=== PATIENT | female | born 2000 | race Caucasian/White ===

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

== ENCOUNTER → 2022-03-31 | Outpatient (CLI) | payer MEDICAID, SELFPAY ==
[2022-03-31 10:46] LABS: HIV - WCH Non-Reactive (Nonreactive); Syphilis Antibodies Non-reactive
[2022-03-31 15:59] LABS: Chlamydia Trachomatis by PCR Negative (Negative); Neisserai gonorrhoeae by PCR Negative (Negative); Probe Check PASS; Sample Adequacy Control PASS; Specimen Processing Control PASS
[2022-04-01 16:13] LABS: HSV 1 IgG < 0.91 index (0.00-0.90); HSV 2 IgG < 0.91 index (0.00-0.90)
== END | disposition home or self-care (01) ==
LOC: PAVLAB 09:26
PROVIDERS: PCP Pediatrics; Visit Provider Nurse Practitioner Women's Health
DX: Z11.3 Encounter for screening for infections with a predominantly sexual mode of transmission (principal); Z20.2 Contact with and (suspected) exposure to infections with a predominantly sexual mode of transmission
CPT/HCPCS: 36415; 86695; 86696; 86703; 86780; 87491; 87591

== ENCOUNTER 2022-07-27 15:45 | Emergency (ER) | payer MEDICAID, SELFPAY ==
[2022-07-27 15:46] VITALS: BP 111/62; PULSE 85; RESP 16; TEMP 36.4; O2SAT 100; BMI 22.8
--- NOTE | 2022-07-27 16:10 | ED.VIS.FEGU ---
HPI <MAYURI Nicholson - Last Filed: 07/27/22 17:56> HPI - Female History of Present Illness Chief Complaint: Vag Bleeding Narrative Narrative: 22-year-old female presents with heavy vaginal bleeding. She states since she stopped the Depo shots in October 2021 she was lightly spotting every day. She was on 1 month of oral control which stopped the bleeding but since she discontinued that she has been spotting almost daily since then. Yesterday she started bleeding more heavily with diffuse abdominal cramping. She is passing blood clots. She cannot quantify it well because she is using some kind of menstrual disc she empties every 12 hours instead of tampons/pads. She vomited once a day over the last few days. She reports that 3 days ago she had a home test that was faintly positive but then took 2 more the next day that were negative. [facility] <MAYURI Nicholson - Last Filed: 07/27/22 17:56> [facility] Medical History Depression Dysmenorrhea Scoliosis Home Medications docosahexaenoic acid 200 mg capsule ( DHA) mg PO 03/31/22 [History Last Taken Unknown] estradiol 1 mg tablet (Estrace) 1 mg PO QDAY #30 tabs 03/31/22 [Rx Last Taken Unknown] rizatriptan 10 mg tablet See Rx Instructions PO .COMPLEX 03/31/22 [History Last Taken Unknown] Allergy/AdvReac Type Severity Reaction Status Date / Time adhesive Allergy Intermediate Swelling Verified 07/27/22 15:46 Latex, Natural Rubber AdvReac Rash Verified 07/27/22 15:46 Family History Unknown Alzheimer's dementia Blindness genetic blindess, 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 Surgical History History of tonsillectomy and adenoidectomy Social History (Updated 03/31/22 @ 09:02 by Robyn Lew) household members: significant other and other number of children: 0 current occupational status: employed current occupation: [employer] - [employer] history of recent travel: No sexually active: Yes Smoking Status: Current every day smoker tobacco type: cigarettes and e-cigarettes Electronic Cigarette Use: with nicotine alcohol intake: current alcohol intake frequency: holidays/special occasions only substance use type: does not use what type of physical activity do you participate in: running and weight training frequency: 1-2 times per week seatbelt use: always do you feel safe at home: Yes additional social history: ROS <MAYURI Nicholson - Last Filed: 07/27/22 17:56> ROS ED ROS Narrative Constitutional: Negative for fever, chills, malaise. Eyes: Negative for visual change. ENT: Negative for sore throat, ear pain, rhinorrhea. CVS: Negative for palpitations, chest pain, syncope. Respiratory: Negative for shortness of breath, cough, orthopnea. GI: Positive for abdominal pain, nausea, vomiting. Negative for diarrhea, constipation, melena, hematochezia. : Negative for dysuria, hematuria or frequency. Neuro: Negative for headache, motor/sensory dysfunction. Skin: Negative for rash, abscess, or wound. Musc: Negative for joint pain, swelling, trauma. Heme: Negative for easy bruising, bleeding, lymphadenopathy. EXAM <MAYURI Nicholson - Last Filed: 07/27/22 17:56> Physical Exam Narrative Exam Narrative: CONST: Patient sitting in no acute distress. EYES: Normal inspection. NECK: Normal inspection. RESP: No respiratory distress, CTAB. CVS: Regular rate and rhythm, no murmur, no gallop. ABD: Soft with mild periumbilical tenderness, no significant pelvic tenderness, no guarding or rebound, nondistended. Pelvic: Normal external genitalia, small amount of blood in the vaginal vault with normal-appearing cervix. No tears or lacerations. SKIN: Color normal, no rash, warm, dry, intact. EXTREMITIES: Normal appearance, no pedal edema. NEURO: Oriented x4. PSYCH: Normal affect. Const Vital Signs: 07/27/22 15:46 Temperature 97.6 F L Temperature Source Temporal Pulse Rate 85 Respiratory Rate 16 Blood Pressure 111/62 Blood Pressure Mean 78 Pulse Ox 100 Oxygen Delivery Method Room Air <Dr. Jam Yan MD - Last Filed: 07/27/22 17:30> Physical Exam Const Vital Signs: 07/27/22 15:46 Temperature 97.6 F L Temperature Source Temporal Pulse Rate 85 Respiratory Rate 16 Blood Pressure 111/62 Blood Pressure Mean 78 Pulse Ox 100 Oxygen Delivery Method Room Air [facility] <MAYURI Nicholson - Last Filed: 07/27/22 17:56> [facility] Narrative Medical decision making narrative: Patient presents with abdominal cramping and 2 days of heavy vaginal bleeding. She does have history of irregular periods and spots almost daily. She is not on control. She appears well and nontoxic with normal vital signs. She has mild diffuse abdominal tenderness but no peritoneal signs. test is negative and urinalysis has 5-10 RBCs but no infection. Pelvic exam showed minimal blood in the vaginal vault no signs of active bleeding or tears and normal cervix. She was treated with Motrin. With no orthostatic symptoms and benign exam I do not feel she needs emergent blood work. She can follow-up with her established FOREIGN AGENT and was discharged in stable condition. I have personally performed a face to face assessment of the patient and have reviewed the CAROLYNN Note. I performed a substantive portion of the visit including all aspects of the following. My emrcado findings include: History is [22-year-old female G0, P0 complaining of vaginal bleeding and cramping. No history of . No discharge. No dysuria. No fever. Similar symptoms for months. No specific diagnosis by her FOREIGN AGENT office.] Exam is [well-appearing 22-year-old. Vital signs stable afebrile. Does not look septic toxic. No distress. Lungs are clear. Heart regular rhythm. Abdomen soft nondistended normal bowel sounds no peritoneal signs. No significant suprapubic tenderness. Right upper and right lower quadrants are unremarkable. Moving all 4 extremities. Nontender no edema. Neurologic exam normal.] Medical Decision Making [Young female with pelvic cramping and bleeding. UA negative. Rare bacteria. No known test negative. Physician speech language pathologist assistant will do a pelvic exam. She will be discharged to follow-up with her FOREIGN AGENT.] Other additions or changes: [None] Lab Data Attestation: I reviewed the patient's lab results. Labs: Laboratory Results - last 24 hr 07/27/22 16:30 Urine Color Yellow Urine Clarity Clear Urine pH 6.0 Ur Specific [place] 1.010 Urine Protein Negative Urine Glucose (UA) Normal Urine Ketones 15 H Urine Occult Blood 250 H Urine Nitrite Negative Urine Bilirubin Negative Urine Urobilinogen Normal Ur Leukocyte Esterase Negative Urine RBC 5-10 SEEN Urine WBC 0-5 SEEN Ur Squamous Epith Cells 0-5 SEEN Urine Bacteria RARE Urine Mucus 0 SEEN Urine Test Negative <Dr. Jam Yan MD - Last Filed: 07/27/22 17:30> [facility] Narrative Medical decision making narrative: Patient presents with abdominal cramping and 2 days of heavy vaginal bleeding. She does have history of irregular periods and spots almost daily. She is not on control. She appears well and nontoxic with normal vital signs. She has mild diffuse abdominal tenderness but no peritoneal signs. test is negative and urinalysis has 5-10 RBCs but no infection. She was treated with Motrin. With no orthostatic symptoms and benign exam I do not feel she needs emergent blood work. She can follow-up with her established FOREIGN AGENT and was discharged in stable condition. I have personally performed a face to face assessment of the patient and have reviewed the CAROLYNN Note. I performed a substantive portion of the visit including all aspects of the following. My mercado findings include: History is [22-year-old female G0, P0 complaining of vaginal bleeding and cramping. No history of . No discharge. No dysuria. No fever. Similar symptoms for months. No specific diagnosis by her FOREIGN AGENT office.] Exam is [well-appearing 22-year-old. Vital signs stable afebrile. Does not look septic toxic. No distress. Lungs are clear. Heart regular rhythm. Abdomen soft nondistended normal bowel sounds no peritoneal signs. No significant suprapubic tenderness. Right upper and right lower quadrants are unremarkable. Moving all 4 extremities. Nontender no edema. Neurologic exam normal.] Medical Decision Making [Young female with pelvic cramping and bleeding. UA negative. Rare bacteria. No known test negative. Physician speech language pathologist assistant will do a pelvic exam. She will be discharged to follow-up with her FOREIGN AGENT.] Other additions or changes: [None] Lab Data Labs: Laboratory Results - last 24 hr 07/27/22 16:30 Urine Color Yellow Urine Clarity Clear Urine pH 6.0 Ur Specific [place] 1.010 Urine Protein Negative Urine Glucose (UA) Normal Urine Ketones 15 H Urine Occult Blood 250 H Urine Nitrite Negative Urine Bilirubin Negative Urine Urobilinogen Normal Ur Leukocyte Esterase Negative Urine RBC 5-10 SEEN Urine WBC 0-5 SEEN Ur Squamous Epith Cells 0-5 SEEN Urine Bacteria RARE Urine Mucus 0 SEEN Urine Test Negative Discharge Plan Triage Chief Complaint: Vag Bleeding ED Midlevel Provider: Keli Stokes ED Provider: Jam Yan Dx/Rx/DC Orders Clinical Impression: Vaginal bleeding, Pelvic pain Instructions: ED Dysfunctional Uterine Bleeding Prescriptions: No Action DHA 200 mg capsule PO rizatriptan 10 mg tablet See Rx Instructions PO .COMPLEX Rx Instructions: take 1 tab at onset of headache; if no relief may repeat 1 tab after at least 2 hrs; max = 3 tabs/24 hr PO estradiol [Estrace] 1 mg tablet 1 mg PO QDAY Qty: 30 0RF Primary Care Provider: Lou Lugo Referrals: Lou Lugo MD [Primary Care Provider] - Activity Restrictions/Additional Instructions: Take Tylenol or Motrin as needed every 6 hours and follow-up with your FOREIGN AGENT. Disposition Disposition: Home, Self Care
[2022-07-27 16:40] LABS: Internal QC Validated? YES +Cl - CLEAR BKGD; Mucous, Urine 0 SEEN /hpf (<or=2+)
[2022-07-27 16:43] LABS: Color, Urine Yellow (Yellow); Glucose, Dipstick Normal (Normal); Ketone-Dipstick 15 mg/dl (Negative); Leukocyte Esterase-Dipstick Negative /ul (Negative); Nitrite-Dipstick Negative (Negative); Occult Blood-Urine 250 /ul (Negative); Protein-Dipstick Negative (Negative); Urine Bilirubin Dipstick Negative (Negative); Urine Clarity Clear (Clear); Urine Urobilinogen Normal (Normal)
[2022-07-27 16:45] LABS: Pregnancy, Urine Negative Negative
[2022-07-27 16:50] LABS: Bacteria RARE /hpf (None Seen); Red Blood Cells-Urine 5-10 SEEN /hpf (0-5); Squamous Epithelial Cells - UA 0-5 SEEN /hpf (5-10); White Blood Cells 0-5 SEEN /hpf (0-5)
[2022-07-27] MEDS: Ibuprofen 600 MG Tablet PO (17:32)
== END 2022-07-27 18:11 | disposition home or self-care (01) ==
PROVIDERS: Physician Assistant; Emergency Provider Emergency Medicine; PCP Pediatrics; Visit Provider Emergency Medicine
DX: N93.9 Abnormal uterine and vaginal bleeding, unspecified (principal); R10.2 Pelvic and perineal pain; F17.210 Nicotine dependence, cigarettes, uncomplicated
CPT/HCPCS: 81001; 81025; 99282

== ENCOUNTER 2023-01-10 22:40 | Emergency (ER) | payer OTHER, SELFPAY ==
[2023-01-10 22:41] VITALS: BP 132/69; PULSE 82; RESP 16; TEMP 36.1; O2SAT 100; BMI 22.6
--- NOTE | 2023-01-10 22:51 | EDS_ITS ---
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 She was dazed but did not lose consciousness. She states subsequently she has been having headache, nausea, and vomited a couple times. She has had some blurry vision but it is off and on. No vision loss or diplopia. No focal neurologic symptoms. No neck, back, extremity pain or other symptoms. [facility] Medical History Depression Dysmenorrhea Scoliosis Home Medications docosahexaenoic acid 200 mg capsule ( DHA) 200 mg PO DAILY 03/31/22 [History Last Taken Unknown] Allergy/AdvReac Type Severity Reaction Status Date / Time adhesive Allergy Intermediate Swelling Verified 01/10/23 22:43 Latex, Natural Rubber AdvReac Rash Verified 01/10/23 22:43 Family History Unknown Alzheimer's dementia Blindness genetic blindess, 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 Surgical History History of tonsillectomy and adenoidectomy Social History household members: significant other and other number of children: 0 current occupational status: employed current occupation: [employer] history of recent travel: No sexually active: Yes Smoking Status: Current every day smoker tobacco type: cigarettes and e- cigarettes Electronic Cigarette Use: with nicotine alcohol intake: current alcohol intake frequency: holidays/special occasions only substance use type: does not use what type of physical activity do you participate in: running and weight training frequency: 1-2 times per week seatbelt use: always do you feel safe at home: Yes additional social history: ROS ROS ED Constitutional Constitutional ED: Reports fatigue Eyes Eyes: Reports blurry vision; Denies diplopia or loss of vision Cardiovascular Cardiovascular: Denies chest pain Gastrointestinal Gastrointestinal: Reports nausea and vomiting; Denies abdominal pain Genitourinary Genitourinary ED: Reports LMP (females 10-50) Details: Comment: (About 6 days ago, rn cardiac rehab than usual. Patient states she was 6 days late, with a negative home test on the day before she started.) Musculoskeletal Musculoskeletal: Denies back pain, extremity pain or neck pain Integumentary Denies abscess, Abrasions or rash Neurologic Neurologic: Reports headache(s) EXAM Physical Exam Const Vital Signs: 01/10/23 22:41 01/10/23 22:46 Temperature 97 F L Temperature Source Temporal Pulse Rate 82 Respiratory Rate 16 Respiratory Effort Normal Non-Labored Respiratory Depth Normal Respiratory Pattern Normal Blood Pressure 132/69 H Blood Pressure Mean 90 Pulse Ox 100 Oxygen Delivery Method Room Air Room Air Positive well nourished and well developed General Appearance ED: well developed and NAD HEENT Reports TM's clear and nasal mucous membranes and turbinates normal HEENT Narrative: Tenderness superior aspect of occiput, top of head, no boggy hematoma, no laceration, exam limited by the amount of patient care. No laurent sign. No periorbital ecchymosis. No CSF otorhinorrhea. No hemotympanum. Face and Sinus: Negative for facial tenderness Tympanic Membrane ED: Yes TM's clear Eyes PERRL and EOMs intact bilaterally Visual Acuity: other Other Details: no entrapment or pain with extraocular movements Neck full ROM and supple General: Negative for tenderness Resp normal respiratory effort Back/Spine normal ROM Cervical Spine: Negative for cervical spine tenderness Thoracic Spine / Upper Back: Negative for thoracic spinal tenderness Lumbar Spine / Lower Back: Negative for lumbar spinal tenderness Extremity normal to inspection and full ROM General Extremety ED: Negative for tenderness Neuro oriented x3, CN's II-XII intact bilaterally, moves all extremities, no focal motor deficits and no sensory deficits noted Adam Coma Scale: document GCS findings Spontaneous Obeys Commands Oriented 15 Sensorium / Orientation: awake and alert Psych mental status grossly normal and thought process normal Psych Narrative: Flat affect Skin no wounds Lesions: no lesions Rashes: no rashes MDM MDM MDM Narrative Medical decision making narrative: CT of the head was obtained, images appear unremarkable my interpretation, the radiologist reviewed it and I agree with his interpretation. Patient was given Tylenol and Zofran in the meantime, she is reassured, likely mild concussion, she needs to follow-up with [employer] [facility] especially if symptoms persist but in the meantime she will be given appropriate temporary work restrictions. Radiography Diagnostic Testing: Clinical Impression(s) from Imaging Studies Brain CT 01/10/23 22:57 IMPRESSION: Negative head/brain CT without intravenous contrast. Electronically Signed: Joseph Vital MD at 23:15 EDT Reading Location ID and State: [facility] / [place] Tel , Service support , Discharge Plan Triage Chief Complaint: Head Injury ED Provider: Brandon Baker Dx/Rx/DC Orders Clinical Impression: Head injury, closed, with concussion Instructions: Concussion Dc Prescriptions: No Action DHA 200 mg capsule 200 mg PO DAILY Stand Alone Forms: Work Status Form Primary Care Provider: Care Physician,No Primary Referrals: [facility] [Group of Physicians] - 2 Days Lou Lugo MD [Non-Staff] - Disposition Disposition: Home, Self Care
[2023-01-10] MEDS: Acetaminophen 500 MG Tablet 1000 MG PO (22:54)
--- NOTE | 2023-01-10 22:57 | CT_ITS ---
EXAM: CT HEAD WITHOUT INTRAVENOUS CONTRAST CLINICAL INDICATION: trauma TECHNIQUE: Multiple axial images were obtained of the head without intravenous contrast. This CT exam was performed using one or more of the following dose reduction techniques: automated exposure control, adjustment of the mA and/or kV according to patient size, and/or use of iterative reconstruction technique. COMPARISON: No relevant prior studies available. FINDINGS: BRAIN AND EXTRA-AXIAL SPACES: Unremarkable. No intra- or extra-axial hemorrhage. No evidence of acute infarct. No intracranial mass or mass effect. There is preservation of the teran/white matter interface. Posterior fossa structures are unremarkable. Ventricles are appropriate for age. No hydrocephalus. Basal cisterns are patent. BONES/JOINTS: Unremarkable. No discrete lytic or blastic abnormalities. SINUSES: Unremarkable as visualized. Clear. MASTOID AIR CELLS: Unremarkable. Clear. ORBITS: Visualized globes, extraocular muscles, optic nerves and retrobulbar fat appear unremarkable. CT/Brain/Head without Contrast IMPRESSION: Negative head/brain CT without intravenous contrast. Electronically Signed: Joseph Vital MD at 23:15 EDT ,
== END 2023-01-10 23:44 | disposition home or self-care (01) ==
LOC: ED 23:14
PROVIDERS: Emergency Provider Emergency Medicine; Visit Provider Emergency Medicine
DX: S06.0X0A Concussion without loss of consciousness, initial encounter (principal); F17.210 Nicotine dependence, cigarettes, uncomplicated; W22.8XXA Striking against or struck by other objects, initial encounter
CPT/HCPCS: 70450; 99283

== ENCOUNTER 2023-08-28 01:18 | Emergency (ER) | payer MEDICAID, SELFPAY ==
[2023-08-28 01:19] VITALS: BP 133/87; PULSE 96; RESP 20; TEMP 36.4; O2SAT 99; BMI 25.9
[2023-08-28 01:39] LABS: Bacteria 0 SEEN /hpf (None Seen); Mucous, Urine 0 SEEN /hpf (<or=2+); Red Blood Cells-Urine 0 SEEN /hpf (0-5); Squamous Epithelial Cells - UA 0 SEEN /hpf (5-10); White Blood Cells 0 SEEN /hpf (0-5)
[2023-08-28 01:42] LABS: Absolute Lymphocyte Count 4.31 X10^3/uL (0.83-4.51); Absolute Neutrophil Count 3.4 X10^3/uL (2.0-7.7); Basophil# 0.02 X10^3/uL; Basophil% 0.2 % (0-1); Eosinophil# 0.23 X10^3/uL; Eosinophils% 2.6 % (0-5); Hematocrit 41.2 % (37-47); Hemoglobin 13.3 g/dL (12.0-15.0); Lymphocyte # 4.31 X10^3/ul (0.83-4.51); Lymphocyte % 48.9 % (19-41); Mean Corp Hgb Conc 32.3 g/dL (32-36); Mean Corpuscular Hgb 28.4 pg (27.0-32.0); Mean Corpuscular Volume 87.8 fL (81-99); Mean Platelet Vol. 9.6 fl (6.2-12.0); Monocyte# 0.86 X10^3/uL; Monocyte% 9.8 % (0-10); NRBC Flagged by Analyzer 0 % (0-5); Neutrophil # 3.37 X10^3/uL (2.7-7.7); Neutrophil % 38.3 % (47-70); Platelet Count 374 K/mm3 (150-450); RBC Distribution Width CV 11.9 % (11.6-14.6); RBC Distribution Width SD 38.3 fl (35.1-43.9); Red Blood Count 4.69 M/mm3 (4.2-5.4); White Blood Count 8.8 K/mm3 (4.4-11.0)
[2023-08-28 01:46] LABS: Color, Urine Yellow (Yellow); Glucose, Dipstick Normal (Normal); Ketone-Dipstick Negative (Negative); Leukocyte Esterase-Dipstick Negative /ul (Negative); Nitrite-Dipstick Negative (Negative); Occult Blood-Urine 150 /ul (Negative); Protein-Dipstick Negative (Negative); Urine Bilirubin Dipstick Negative (Negative); Urine Clarity Clear (Clear); Urine Urobilinogen Normal (Normal)
[2023-08-28 01:53] LABS: Internal QC Validated? YES +Cl - CLEAR BKGD; Pregnancy, Serum, hCG Quali. NEGATIVE Negative
[2023-08-28 02:12] LABS: ALB/GLOB Ratio 1.2 RATIO (0.9-2.4); AST(SGOT) 17 U/L (15-37); Alanine Aminotransfer ALT/SGPT 25 U/L (13-56); Albumin, Serum 4.4 g/dL (3.2-5.0); Alkaline Phosphatase 82 U/L (45-117); Anion Gap 7 (5-15); BUN 8 mg/dL (7-18); BUN/Creat Ratio 9.4 RATIO (10-20); Calcium,Total 9.5 mg/dL (8.5-10.1); Chloride 108 mmol/L (98-107); Creatinine, Serum 0.85 mg/dL (0.55-1.02); EST Glomerular Filtration Rate 90 mL/min (>60); Est Glom Filt Rate - Afr Amer 108 mL/min (>60); Estimated Creatinine Clearance 98.01 ml/min; Globulin 3.7 g/dL (2.2-4.2); Glucose 90 mg/dL (74-106); Potassium 3.6 mmol/L (3.5-5.1); Protein, Total 8.1 g/dL (6.4-8.2); Sodium Level 141 mmol/L (136-145)
--- NOTE | 2023-08-28 02:52 | ED.VIS.GI ---
HPI HPI - GI History of Present Illness Chief Complaint: Abd Pain Narrative Narrative: 23-year-old female presenting with pelvic pain. She states has had this in the past. She has a history of ovarian cyst. Patient is on concern for . She states she had some episodes of nausea and vomiting today. She states that she had this about a year ago which is very similar and was seen at [facility]. She had a CT of the abdomen pelvis and lab work which was all normal. She states that time they gave her Dilaudid in the ER but did not give her anything for home. Her symptoms lasted only a couple of days and then resolved. Denies vaginal complaints. Denies UTI symptoms. No fevers or chills PFSH PFSH Medical History Depression Dysmenorrhea Scoliosis Home Medications dicyclomine 10 mg capsule 20 mg (2 x 10 mg) PO TID #30 caps 08/28/23 [Rx Last Taken Unknown] naproxen 500 mg tablet (Naprosyn) 500 mg PO BID PRN pain #20 tabs 08/28/23 [Rx Last Taken Unknown] ondansetron 4 mg disintegrating tablet 4 mg PO Q8H PRN PRN Nausea #14 tabs 08/28/23 [Rx Last Taken Unknown] Allergy/AdvReac Type Severity Reaction Status Date / Time adhesive Allergy Intermediate Swelling Verified 08/28/23 01:22 Latex, Natural Rubber AdvReac Rash Verified 08/28/23 01:22 Family History Unknown Alzheimer's dementia Blindness genetic blindess, 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 Surgical History History of tonsillectomy and adenoidectomy Social History household members: significant other and other number of children: 0 current occupational status: employed current occupation: [employer] history of recent travel: No sexually active: Yes Smoking Status: Current every day smoker tobacco type: cigarettes and e-cigarettes Electronic Cigarette Use: with nicotine alcohol intake: current alcohol intake frequency: holidays/special occasions only substance use type: does not use what type of physical activity do you participate in: running and weight training frequency: 1-2 times per week seatbelt use: always do you feel safe at home: Yes additional social history: ROS ROS ED Constitutional Constitutional ED: Denies chills, fever(s) or sweats Eyes Eyes: Denies blurry vision or change in vision ENT ENT ED: Denies ear pain or sore throat Cardiovascular Cardiovascular: Denies chest pain, palpitations or racing heartbeat Respiratory/Chest Respiratory/Chest: Denies cough, dyspnea or sputum Gastrointestinal Gastrointestinal: Reports abdominal pain, nausea and vomiting; Denies constipation or diarrhea Genitourinary Genitourinary ED: Denies dysuria, hematuria or urinary frequency Musculoskeletal Musculoskeletal: Denies arthralgias, myalgias or neck pain Integumentary Denies abscess, Abrasions or rash Neurologic Neurologic: Denies headache(s), paresthesias or weakness Psychiatric Psychiatric: Denies anxiety, depression, suicidal ideation or suicidal thoughts Endocrine Endocrinology: Denies polydipsia or polyuria EXAM Physical Exam Const Vital Signs: 08/28/23 01:19 Temperature 97.6 F L Temperature Source Temporal Pulse Rate 96 Respiratory Rate 20 H Blood Pressure 133/87 H Blood Pressure Mean 102 Pulse Ox 99 Oxygen Delivery Method Room Air Positive well nourished General Appearance ED: NAD; Negative for pallor HEENT Reports moist mucous membranes normocephalic and atraumatic Eyes PERRL and EOMs intact bilaterally Neck no lymphadenopathy Resp normal respiratory effort Cardio regular rate and regular rhythm GI GI Narrative: Diffusely tender. No peritoneal signs. Neuro CN's II-XII intact bilaterally Sensorium / Orientation: alert Psych mental status grossly normal Skin General Skin Exam: Negative for jaundice or pallor MDM MDM MDM Narrative Medical decision making narrative: Patient presenting with suprapubic pain/pelvic pain. Differential includes constipation, ovarian cyst, , dehydration, electrolyte normalities. CBC was obtained to assess white blood cell count, hemoglobin, platelets. CMP to assess liver function, renal function, electrolytes. hCG to assess for . Urinalysis to assess for UTI. Workup ultimately within normal limits. Discussed treatment with Toradol and Bentyl currently. Patient states she does have history of ovarian cyst but I do not believe she has any evidence of a torsion on exam. Recommended conservative measures for ovarian cyst if it was present. I did offer a CT scan as we do not have ultrasound here tonight although the patient declines. We will try Bentyl and Toradol and then reevaluate. Reevaluation at 430 AM the patient is doing much better. She wishes to go home. I will give prescription for Zofran, Bentyl, Naprosyn. Return precautions were discussed. Impression: 1. Abdominal pain 2. nausea/vomiting Lab Data Attestation: I reviewed the patient's lab results. Labs: Laboratory Results - last 24 hr 08/28/23 08/28/23 01:29 01:32 WBC 8.8 RBC 4.69 Hgb 13.3 Hct 41.2 MCV 87.8 MCH 28.4 MCHC 32.3 RDW Std Deviation 38.3 RDW Coeff of Tomy 11.9 Plt Count 374 MPV 9.6 Immature Gran % (Auto) 0.200 Neut % (Auto) 38.3 L Lymph % (Auto) 48.9 H [place] % (Auto) 9.8 Eos % (Auto) 2.6 Baso % (Auto) 0.2 Absolute Neuts (auto) 3.4 Absolute Lymphs (auto) 4.31 Nucleated RBC % 0 Sodium 141 Potassium 3.6 Chloride 108 H Carbon Dioxide 26.0 Anion Gap 7 BUN 8 Creatinine 0.85 Estim Creat Clear Calc 98.01 Est GFR (MDRD) Af Amer 108 Est GFR (MDRD) Non-Af 90 BUN/Creatinine Ratio 9.4 L Glucose 90 Calcium 9.5 Total Bilirubin 0.40 AST 17 ALT 25 Alkaline Phosphatase 82 Total Protein 8.1 Albumin 4.4 Globulin 3.7 Albumin/Globulin Ratio 1.2 Serum , Qual NEGATIVE Urine Color Yellow Urine Clarity Clear Urine pH 7.0 Ur Specific [place] 1.010 Urine Protein Negative Urine Glucose (UA) Normal Urine Ketones Negative Urine Occult Blood 150 H Urine Nitrite Negative Urine Bilirubin Negative Urine Urobilinogen Normal Ur Leukocyte Esterase Negative Urine RBC 0 SEEN Urine WBC 0 SEEN Ur Squamous Epith Cells 0 SEEN Urine Bacteria 0 SEEN Urine Mucus 0 SEEN Discharge Plan Triage Chief Complaint: Abd Pain ED Provider: Ty Klein Dx/Rx/DC Orders Instructions: ED Abdominal Pain Unkn Cause Fem Prescriptions: New dicyclomine 10 mg capsule 20 mg PO TID Qty: 30 0RF ondansetron 4 mg tablet,disintegrating 4 mg PO Q8H PRN PRN (Reason: Nausea) Qty: 14 0RF naproxen [Naprosyn] 500 mg tablet 500 mg PO BID PRN (Reason: pain) Qty: 20 0RF Primary Care Provider: Care Physician,No Primary Referrals: Care Physician,No Primary [Primary Care Provider] - Disposition Disposition: Home, Self Care
[2023-08-28] MEDS: Ketorolac 15 MG/ML Vial IV (03:19)
[2023-08-28] MEDS: Ondansetron 4 MG/2 ML Vial IV (03:20)
[2023-08-28] MEDS: Dicyclomine 10 MG Capsule 20 MG PO (03:20)
--- OUTSIDE RECORDS SUMMARY | 2023-08-28 03:40 | XMS RPT_ITS | CCD ---
Author Name Unknown Address [address] [place] [address] Organization [facility] Care Team Providers Care Databases Software Consultant Name Role Phone Unavailable Primary Care Provider Cesar SEARS MD, DR WALDEMAR Syed Primary Care Physician ROWENA, DR DENNIS Miller Admitting Unavaila ble ROWENA, DR DENNIS Miller Attending Unavaila ferny GUAMAN, DR DENNIS Miller Primary Care Unavaila WALDEMAR Woodward MD Consulting Unavailable WALDEMAR SEARS MD Referring Unavailable PROVIDER, UNKNOWN Consulting Unavailable ZULEIKA REGAN DO Admitting Unavailable ZULEIKA REGAN DO Attending Unavailable ZULEIKA REGAN DO Primary Care Unavailable Waldemar Sears Primary Care Provider LATHA GUZMAN, SEUN Attending Unavailable RENU GUZMAN, DR WALDEMAR Syed Primary Care Unavailab WALDEMAR Napier Primary Care Unavailable Allergies Allergy Classification Reported Allergen(s) Allergy Type Date of Onset Reaction(s) Facility (3 sources) traMADol; Translations: [tramadol] Drug Allergy [facility] (1 source) HYDROmorphone Drug Allergy [facility] (1 source) traMADol Drug Allergy [facility] (5 sources) Latex; Translations: [LATEX] Drug Intolerance 07-22-20 Rash, Itching [facility] Work Phone: (5 sources) Adhesive Tape-Silicones; Translations: [ADHESIVE TAPE-SILICONES] Drug Intolerance 07-22-20 Rash, Itching [facility] Work Phone: Medications Current Medications Medication Drug Class(es) Dates Sig (Normalized) Sig (Original) aspirin 81 mg delayed release oral tablet (5 sources) Platelet Aggregation Inhibitor, Nonsteroidal Anti-inflammatory Drug Start: 10-30-2020 Aspir-Low 81 mg oral delayed release tablet Dose : 81 mg = 1 tab(s), Oral, qDay, as needed, # 30 tab(s), 0 Refill(s) Start Date: 10/30/20 Status: Ordered cyclobenzaprine hydrochloride 10 mg oral tablet (2 sources) Muscle Relaxant Start: 02-01-2022 cyclobenzaprine 10 mg oral tablet 0 Refill(s) Start Date: 02/01/22 Status: Ordered ferrous sulfate 325 mg oral tablet (6 sources) Start: 10-30-2020 IRON (ferrous sulfate 325 mg) 65 mg oral tablet Dose : 325 mg = 1 tab(s), Oral, qDay, Take with food., # 60 tab(s), 3 Refill(s) Start Date: 10/30/20 Status: Ordered Completed/Discontinued Medications Medication Drug Class(es) Dates Sig (Normalized) Sig (Original) azithromycin 250 mg oral tablet (1 source) Macrolide Antimicrobial Start: 01-21-2020 End: 07-22-2022 take 2 tablets by mouth once daily, then take 1 tablet by mouth once daily azithromycin (ZITHROMAX Z-EAN) 250 mg tablet Take two tablets by mouth the first day and then one tablet daily for 4 days. 6 tablet 0 01/21/2020 07/22/2022 Discontinued Problems Problem Classification Problem Date Documented Date Episodic/Chronic Abdominal pain (2 sources) Lower abdominal pain; Translations: [Abdominal pain] Onset: 11-26-2021 Episodic Immunizations and screening for infectious disease (1 source) Contact with or exposure to other viral diseases; Translations: [Close exposure to COVID-19 virus] Episodic Nausea and vomiting (1 source) Nausea and vomiting; Translations: [Non-intractable vomiting with nausea, unspecified vomiting type] Episodic Nonspecific chest pain (1 source) Chest pain; Translations: [Other chest pain] Onset: 06-15-2023 Episodic Other connective tissue disease (5 sources) Hamstring injury; Translations: [Other specified enthesopathies of unspecified lower limb, excluding foot] Onset: 08-06-2022 Episodic Other injuries and conditions due to external causes (5 sources) Bone injury; Translations: [Other injury of unspecified body region, initial encounter] Onset: 08-06-2022 Episodic Other non-traumatic joint disorders (1 source) Pain in right knee; Translations: [Pain in joint, lower leg] Episodic Other non-traumatic joint disorders (5 sources) Anterior knee pain; Translations: [Pain in right knee] Onset: 08-06-2022 Episodic Results Test Name Value Interpretation Reference Range Facil ity Vital Signs Date Time Vital Sign Value Performing Clinician Facility 06-15-2023 13:07-0400 Body temperature 98.24 [degF] SEUN AZUL MD [facility] 06-15-2023 13:07-0400 Diastolic Blood Pressure Non-Invasive 78 1 SEUN AZUL MD [facility] 06-15-2023 13:07-0400 Heart rate 103 /min SEUN AZUL MD [facility] 06-15-2023 13:07-0400 Respiratory rate 18 /min SEUN AZUL MD [facility] 06-15-2023 13:07-0400 Systolic Blood Pressure Non-Invasive 115 1 SEUN AZUL MD [facility] 07-22-2022 15:37-0500 Body temperature 98.2 [degF] Ernie Lance LEARNING AND DEVELOPMENT COORDINATOR.CLINICAL DOCUMENTATION SPECIALIST Work Phone: [facility] 07-22-2022 15:37-0500 Body weight 64.41 kg Ernie Lucas LEARNING AND DEVELOPMENT COORDINATOR.CLINICAL DOCUMENTATION SPECIALIST Work Phone: [facility] 07-22-2022 15:37-0500 Diastolic blood pressure 66 mm[Hg] Ernie Lance LEARNING AND DEVELOPMENT COORDINATOR.CLINICAL DOCUMENTATION SPECIALIST Work Phone: [facility] 07-22-2022 15:37-0500 Heart rate 70 /min Ernie Lance LEARNING AND DEVELOPMENT COORDINATOR.CLINICAL DOCUMENTATION SPECIALIST Work Phone: [facility] 07-22-2022 15:37-0500 Respiratory rate 16 /min Ernie Lance LEARNING AND DEVELOPMENT COORDINATOR.CLINICAL DOCUMENTATION SPECIALIST Work Phone: [facility] 07-22-2022 15:37-0500 SaO2% (BldA) [Mass fraction] 99 % Ernie Lucas LEARNING AND DEVELOPMENT COORDINATOR.CLINICAL DOCUMENTATION SPECIALIST Work Phone: [facility] 07-22-2022 15:37-0500 Systolic blood pressure 106 mm[Hg] Ernie Lucas APRN.CLINICAL DOCUMENTATION SPECIALIST Work Phone: [facility] 02-01-2022 17:55-0400 Body temperature 99.32 [degF] SEUN AZUL MD [facility] 02-01-2022 17:55-0400 Diastolic blood pressure 76 mm[Hg] SEUN AZUL MD [facility] 02-01-2022 17:55-0400 Heart rate 101 /min SEUN AZUL MD [facility] 02-01-2022 17:55-0400 Respiratory rate 18 /min SEUN AZUL MD [facility] 02-01-2022 17:55-0400 Systolic blood pressure 115 mm[Hg] SEUN AZUL MD [facility] 12-25-2021 06:39-0400 Body temperature 97.16 [degF] DR SWAPNA SCALES MD [facility] 12-25-2021 06:39-0400 Body weight 65.[address] SWAPNA SCALES MD [facility] 12-25-2021 06:39-0400 diastolic 85 mm[Hg] DR SWAPNA SCALES MD [facility] 12-25-2021 06:39-0400 Heart rate 102 /min DR SWAPNA SCALES MD [facility] 12-25-2021 06:39-0400 Respiratory rate 20 /min DR SWAPNA SCALES MD [facility] 12-25-2021 06:39-0400 systolic 112 mm[Hg] DR SWAPNA SCALES MD [facility] 11-29-2021 01:44-0400 Diastolic blood pressure 70 mm[Hg] ISIDRO MIR MD [facility] 11-29-2021 01:44-0400 Heart rate 82 /min ISIDRO MIR MD [facility] 11-29-2021 01:44-0400 Mean blood pressure 90 mm[Hg] ISIDRO MIR MD [facility] 11-29-2021 01:44-0400 Respiratory rate 18 /min ISIDRO MIR MD [facility] 11-29-2021 01:44-0400 Systolic blood pressure 130 mm[Hg] ISIDRO MIR MD [facility] 11-29-2021 00:21-0400 Body temperature 98.6 [degF] ISIDRO MIR MD [facility] 11-29-2021 00:21-0400 Diastolic blood pressure 78 mm[Hg] ISIDRO MIR MD [facility] 11-29-2021 00:21-0400 Heart rate 90 /min ISIDRO MIR MD [facility] 11-29-2021 00:21-0400 Mean blood pressure 96 mm[Hg] ISIDRO MIR MD [facility] 11-29-2021 00:21-0400 Respiratory rate 18 /min ISIDRO MIR MD [facility] 11-29-2021 00:21-0400 Systolic blood pressure 132 mm[Hg] ISIDRO MIR MD [facility] 11-28-2021 22:47-0400 Body temperature 98.96 [degF] ISIDRO MIR MD [facility] 11-28-2021 22:47-0400 Diastolic blood pressure 92 mm[Hg] ISIDRO MIR MD [facility] 11-28-2021 22:47-0400 Heart rate 95 /min ISIDRO MIR MD [facility] 11-28-2021 22:47-0400 Respiratory rate 18 /min ISIDRO MIR MD [facility] 11-28-2021 22:47-0400 Systolic blood pressure 145 mm[Hg] ISIDRO MIR MD [facility] 11-27-2021 00:40-0400 Diastolic blood pressure 78 mm[Hg] JOLYNN [facility] DO [facility] 11-27-2021 00:40-0400 Heart rate 75 /min [facility] 11-27-2021 00:40-0400 Respiratory rate 16 /min JOLYNN REICHFIELD DO [facility] 11-27-2021 00:40-0400 Systolic blood pressure 114 mm[Hg] JOLYNN REICHFIELD DO [facility] 11-26-2021 21:15-0400 Body height 165.1 cm JOLYNN REICHFIELD DO [facility] 11-26-2021 21:15-0400 Body temperature 98.06 [degF] JOLYNN REICHFIELD DO [facility] 11-26-2021 21:15-0400 Body weight 65.9 kg JOLYNN REICHFIELD DO [facility] 11-26-2021 21:15-0400 Diastolic blood pressure 81 mm[Hg] JOLYNN REICHFIELD DO [facility] 11-26-2021 21:15-0400 Heart rate 100 /min JOLYNN REICHFIELD DO [facility] 11-26-2021 21:15-0400 Respiratory rate 16 /min JOLYNN REICHFIELD DO [facility] 11-26-2021 21:15-0400 Systolic blood pressure 121 mm[Hg] JOLYNN REICHFIELD DO [facility] 12-09-2020 13:33-0400 BMI (Body Mass Index) 20.36 kg/m2 [facility] Work Phone: 12-09-2020 13:33-0400 Body Temperature 98.01 [degF] [facility] Work Phone: 12-09-2020 13:33-0400 Body weight 58.97 kg [facility] Work Phone: 12-09-2020 13:33-0400 BP Diastolic 81 mm[Hg] [facility] Work Phone: 12-09-2020 13:33-0400 BP Systolic 127 mm[Hg] [facility] Work Phone: 12-09-2020 13:33-0400 Pulse (Heart Rate) 80 /min [facility] Work Phone: 12-09-2020 13:33-0400 Pulse Oximetry 98 % [facility] Work Phone: 12-09-2020 13:33-0400 Respiratory Rate 18 /min [facility] Work Phone: 10-29-2020 16:41-0500 BP Diastolic 80 mm[Hg] Isra Woodard [facility] Work Phone: 10-29-2020 16:41-0500 BP Systolic 120 mm[Hg] Isra Woodard [facility] Work Phone: 10-29-2020 16:41-0500 Pulse (Heart Rate) 90 /min Isra Woodard [facility] Work Phone: 10-29-2020 16:41-0500 Pulse Oximetry 100 % Isra Woodard [facility] Work Phone: 10-29-2020 16:41-0500 Respiratory Rate 16 /min Isra Woodard [facility] Work Phone: 10-29-2020 14:11-0500 BMI (Body Mass Index) 19.58 kg/m2 Isra Woodard [facility] Work Phone: 10-29-2020 14:11-0500 Body Temperature 97.59 [degF] Isra Woodard [facility] Work Phone: 10-29-2020 14:050 Body weight 56.7 kg Isra Woodard [facility] Work Phone: 10-29-2020 14:050 Height 170.2 cm Isra Woodard [facility] Work Phone: Encounters Encounter Date Encounter Type Care Provider Facility Start: 08-19-2023 End: 08-19-2023 ambulatory [facility] Facility:[facility] Start: 06-15-2023 End: 06-15-2023 Emergency department patient visit SEUN AZUL MD Facility: Start: 06-15-2023 End: 06-15-2023 Emergency department patient visit SEUN AZUL MD [facility] Start: 11-11-2022 End: 11-11-2022 ambulatory [facility] Facility:[facility] Start: 08-20-2022 End: 08-20-2022 ambulatory Keli Peterson PT Work Phone: [facility] Physical Therapy Procedures Date Procedure Procedure Detail Performing Clinician Start: 07-22-2022 Radiologic exam knee complete 4/more views Ernie Lcuas APRN.CLINICAL DOCUMENTATION SPECIALIST Work Phone: Start: 07-14-[address] DENNIS GUAMAN Plan of Treatment Date Care Activity Detail Author Start: 05-01-2022 Influenza vaccination INFLUENZA (#1) [facility] Start: 02-03-2022 COVID-19 VACCINE (4 - Booster for Pfizer series) COVID-19 VACCINE (4 - Booster for Pfizer series) [facility] Start: 08-31-2021 DEPRESSION ASSESSMENT DEPRESSION ASSESSMENT [facility] Start: 2021 Urine microalbumin profile DTAP,TDAP,TD (1 - Tdap) [facility] Start: 05-01-2021 Influenza vaccination Flu vaccine (Season Ended) [facility] Work Phone: Start: 2020 CHLAMYDIA SCREENING (18-24) CHLAMYDIA SCREENING (18-24) [facility] Start: 2020 GC (GONORRHEA) SCREENING (18-24) GC (GONORRHEA) SCREENING (18-24) [facility] Start: 2020 HEPATITIS C SCREENING HEPATITIS C SCREENING [facility] Start: 2020 HIV SCREENING HIV SCREENING [facility] Start: 05-01-2020 Influenza vaccination Flu vaccine (#1) [facility] Work Phone: Start: 2018 COVID-19 Vaccine (1) COVID-19 Vaccine (1) [facility] Work Phone: Start: 2016 PEDS TO ADULT TRANSITION ANNUAL ASSESSMENT PEDS TO ADULT TRANSITION ANNUAL ASSESSMENT [facility] Start: 2014 PEDS TO ADULT TRANSITION INITIAL DISCUSSION PEDS TO ADULT TRANSITION INITIAL DISCUSSION [facility] Start: 2013 HPV VACCINE (1 - 2-dose series) HPV VACCINE (1 - 2-dose series) [facility] Start: 2012 MENINGOCOCCAL B: Consider based on risk (1 of 2 - Risk Bexsero 2-dose series) MENINGOCOCCAL B: Consider based on risk (1 of 2 - Risk Bexsero 2-dose series) [facility] Start: 2002 HEPATITIS B (1 of 3 - 3-dose series) HEPATITIS B (1 of 3 - 3-dose series) [facility] End: 12-09-2020 COVID-19 COVID-19 Lab Routine One Time for 1 Occurrences starting 12/09/2020 until 12/09/2020 [facility] Work Phone: Payers Date Payer Category Payer Medicaid [id number] 2022 Private Health Insurance [id number] 2013 Medicaid [id number] 2002 Unknown [id number] 2002 Unknown [id number] Worker's Compensation [id number] Social History Date Type Detail Facility Start: [facility]-29-[facility] Work Phone: History of tobacco use [facility] Work Phone: Start: 10-29-2020 Alcohol intake Lifetime non-d yesenia (finding) [facility] Work Phone: Start: 10-29-2020 History SDOH Alcohol Frequency 1 [facility] Work Phone: Start: 2002 Sex Assigned At Not on file [facility] Work Phone: Start: 07-12-2022 End: 07-22-2022 Exposure to SARS-CoV-2 (event) [facility] Work [facility]: Exposure to SARS-CoV -2 (event) Yes [facility] Work Phone: Tobacco Nicotine Use: Va ping Product in Last 90 Days. [facility] Start: 07-22-2022 Tobacco smoking status Never s moked tobacco (finding) [facility] Sex Assigned At Sex [facility] Start: 07-22-2022 Tobacco use and exposure Smokeless tobacco non-user [facility] Work Phone: Start: 07-22-2022 Alcohol intake Not Asked [facility] Functional Status Date Assessment Result Facility 06-15-2023 Functional Status Resting [facility] 02-01-2022 Functional Status Independent [facility] 02-01-2022 Functional Status Standard Safet y ID band on, Call device within reach, Bed in low position, Wheels locked, Upper/Half-Length side-rails up, Phone within reach, personal items within reach, Assistive devices within reach, Toileting device within reach, Bedside Cart Locked, Visitor at bedside, Safety level maintained [facility] 12-25-2021 Functional Status [facility] 11-29-2021 [facility] Functional Status [facility]fall [facility] Mental Status Date Assessment Result Facility 06-15-2023 Mental Status Orientation Oriented x 4 [facility] 02-01-2022 Mental Status Orientation Oriented x 4 [facility] 02-01-2022 [facility] 11-28-2021 Mental Status [facility] 11-27-2021 Mental Status [facility] 11-26-2021 Mental Status [facility] Clinical Notes 11-26-2021 to 08-19-2023 Keli Peterson, PT - 08/20/2022 8:10 AM Paul Peterson, PT - 08/14/2022 8:01 AM Paul Peterson, PT - 08/06/2022 3:28 PM EST Note Date & Type Note Facility 08-19-2023 Note HNO ID: [id number] Author: Britney Hook APRN.CLINICAL DOCUMENTATION SPECIALIST Service: ? Author Type: Nurse Practitioner Type: Progress Notes Filed: 08/19/2023 3:14 PM Note Text: Subjective Cough Associated symptoms include ear pain and sore throat. Pertinent negatives include no chills, no myalgias and no shortness of breath. Bettina Lugo is a 23 year old female who presents with sore throat, cough, congestion, bilateral ear pain for the past 3 days. Her mom tested + for COVID Thursday Bettina had a fever of 103 degrees Thursday. She has been taking mucinex and using ear drops at home. Review of Systems Constitutional: Positive for fever. Negative for chills and malaise/fatigue. HENT: Positive for congestion, ear pain and sore throat. Respiratory: Positive for cough and sputum production. Negative for shortness of breath. Cardiovascular: Negative. Musculoskeletal: Negative for myalgias. BP 120/76 Pulse 63 Temp 36.6 ?C (97.9 ?F) Resp 16 Wt 73 kg (161 lb) LMP 03/28/2022 SpO2 96% BMI 26.79 kg/m? No past medical history on file. No past surgical history on file. ALLERGIES Adhesive Tape-Silicones and Latex MEDICATIONS amoxicillin (AMOXIL) 875 mg tablet Take 1 tablet by mouth two times a day for 7 days. vit no.124/iron/folic ( VITAMIN ORAL) Take by mouth. (Patient not taking: Reported on 08/19/2023) fluticasone (FLONASE) 50 mcg/actuation nasal spray Use 2 Sprays in each nostril once daily. Rinse mouth after use. (Patient not taking: Reported on 08/19/2023) estradiol (ESTRACE) 1 mg tablet Take 1 mg by mouth once daily. (Patient not taking: Reported on 07/22/2022) medroxyPROGESTERone (DEPO-PROVERA) 150 mg/mL injection Inject 150 mg intramuscularly. (Patient not taking: Reported on 07/22/2022) No family history on file. Social History Tobacco Use Smoking status: Never Smokeless tobacco: Never Objective Physical Exam Vitals and nursing note reviewed. HENT: Right Ear: Ear canal and external ear normal. Tympanic membrane is erythematous. Left Ear: Ear canal and external ear normal. Tympanic membrane is erythematous. Nose: Nose normal. Mouth/Throat: Pharynx: Uvula midline. No oropharyngeal exudate or posterior oropharyngeal erythema. Cardiovascular: Rate and Rhythm: Normal rate and regular rhythm. Heart sounds: Normal heart sounds. Pulmonary: Effort: Pulmonary effort is normal. No respiratory distress. Breath sounds: Normal breath sounds. No wheezing or rales. Musculoskeletal: Cervical back: Neck supple. Lymphadenopathy: Cervical: No cervical adenopathy. Skin: General: Skin is warm and dry. Findings: No erythema or rash. Neurological: Mental Status: She is alert. ASSESSMENT/PLAN: 1. Other acute nonsuppurative otitis media of both ears, recurrence not specified - ICD9: 381.00, ICD10: H65.193 (primary diagnosis) - Will begin treatment with as per antibiotic as written, see orders - Supportive care with plenty of fluids, rest, and analgesia prn. - AMOXICILLIN 875 MG TABLET 2. Viral URI with cough - ICD9: 465.9, ICD10: J06.9 - Discussed viral etiology and rationale for treatment. - Symptomatic treatment with prn analgesia - Supportive care with fluids and rest - COVID AND INFLUENZA A/B NAAT, ROUTINE - Follow-up with your PCP in 3-5 days if symptoms have not improved or sooner if symptoms worsen - Discussed red flags and need for immediate medical evaluation if any occur. - Discussed supportive care treatment with fluids, rest and analgesia. - Discussed expected course of illness Britney Hook APRN.[facility] 06-15-2023 Note Discharge Instructions Thank you for allowing [facility] to assist you with your healthcare needs. The following is important discharge information regarding your hospital visit. Diagnosis from Today's Visit Chest pain - Pleuritic Musculoskeletal chest pain What to Do Next Instructions from Your Care Team No qualifying data available. Post Acute Orders No qualifying data available. You Need to Schedule the Following Appointments Follow Up with Call Physician Referral When Within 2-4 days Follow Up with Go to emergency room if symptoms worsen When Within 2-4 days Follow Up with WALDEMAR SEARS MD When Within 2-4 days Where: [address] [place] [address]- Allergies TraMADol Hydrochloride ER Medications Please ask your primary doctor or pharmacist before taking any other medication not listed, including over the counter drugs, herbal medications, vitamins and or supplements as they may interact with your home medications. What How Much When Instructions Last Dose Unchanged aspirin (Aspir-Low 81 mg oral delayed release tablet) 1 tab(s) by mouth Once a day as needed Unchanged cholecalciferol (Vitamin D3) 1,000 unit(s) by mouth Every day Unchanged cyclobenzaprine (cyclobenzaprine 10 mg oral tablet) Unchanged ferrous sulfate (IRON (ferrous sulfate 325 mg) 65 mg oral tablet) 1 tab(s) by mouth Once a day Take with food. Unchanged ibuprofen (ibuprofen 600 mg oral tablet) Unchanged prochlorperazine (Compazine use prochlorperazine ) 10 Milligram by mouth Every 6 hours as needed for as needed for nausea/vomiting Duration: 3 Days Unchanged riboflavin (Vitamin B2) 100 Milligram by mouth Once a day Please take this list to your next doctor s visit. Bring all medications you take, including over the counter medications, herbals and other supplements with you to your doctor s visit. Patients and families are reminded to discard old lists and to update any records with all medication providers or retail pharmacies. Education Materials Noncardiac Chest Pain Based on your visit today, the healthcare provider doesn t know what is causing your chest pain. In most cases, people who come to the emergency department with chest pain don t have a problem with their heart. Instead, the pain is caused by other conditions. It's important for the healthcare team to be sure you are not having a life threatening cause for chest pain such as a heart attack, blood clot in the lungs, collapsed lung, ruptured esophagus, or tearing of the aorta. Once these major causes have been ruled out, you may have further evaluation for non-heart causes of chest pain. These may be problems with the lungs, muscles, bones, digestive tract, nerves, or mental health. Lung problems Inflammation around the lungs (pleurisy) Collapsed lung (pneumothorax) Fluid around the lungs (pleural effusion) Lung cancer (a rare cause of chest pain) Muscle or bone problems Inflamed cartilage between the ribs (costochondritis) Fibromyalgia Rheumatoid arthritis Chest wall strain Digestive system problems Reflux Stomach ulcer Spasms of the esophagus Gall stones Gallbladder inflammation Mental health conditions Panic or anxiety attacks Emotional distress Your condition doesn t seem serious and your pain doesn t appear to be coming from your heart. But sometimes the signs of a serious problem take more time to appear. Watch for the warning signs listed below. Home care Follow these guidelines when caring for yourself at home: Rest today and avoid strenuous activity. Take any prescribed medicine as directed. Follow-up care Follow up with your healthcare provider, or as advised, if you don t start to feel better within 24 hours. When to seek medical advice Call your healthcare provider right away if any of these occur: A change in the type of pain. Call if it feels different, becomes more serious, lasts longer, or begins to spread into your shoulder, arm, neck, jaw, or back. Shortness of breath You feel more pain when you breathe Cough with dark-colored mucus or blood Weakness, dizziness, or fainting Fever of 100.4 F (38 C) or higher, or as directed by your healthcare provider Swelling, pain, or redness in one leg [id number] [employer]. [address] [place] [address]. All rights reserved. This information is not intended as a substitute for professional medical care. Always follow your healthcare professional's instructions. Additional Information VACCINATE! IT SAVES LIVES! Members of the community who have not yet received the COVID-19 vaccine and would like to receive it can visit one of [facility] vaccine clinics. There are many vaccine clinic locations within the [facility]. For locations and available times, please visit [email or web address] It is important to note that some COVID mobile vaccine clinics are held outdoors and may be canceled in rainy or stormy conditions. To learn more about pediatric vaccinations (ages 5-11), we invite you to visit the [facility] webpage. [email or web address] [email or web address] [email or web address]-[email or web address] To learn more about the COVID-19 vaccine, we invite you to visit the CDC website for a list of frequently asked questions. https://www.cdc.gov/coronavirus/ 2019-ncov/vaccines/faq.html [facility] Patient Portal Access Instructions: Stay connected with your healthcare team and access your personal medical information anytime with the [facility] Patient Portal. If you would like a full copy of your medical records please contact the [facility] Medical Records Department Thursday through Thursday between 8a.m. and 4:30p.m. Please follow the directions below to access the portal: 1.Access the email account you provided upon registration to the [facility].2.Look for an invitation email from [facility].3.Open the email and access the invitation link: Accept Invitation to [facility]4.Fill in the required [place]ford to create your account. Sign into [email or web address] with your username and password that you created in the above steps to stay up to date. You can then view a summary of results, a summary of your visits, and the ability to download your summaries to your computer or send the information securely to a physician. Remember that your healthcare information is confidential, so carefully consider who you will allow to register on the [employer] Patient Portal for access to your information. You can also access the [employer] Patient Portal on the [employer]. Simply click on Health Records under Health Data and then click on the [employer] logo. HOW TO SAFELY DISPOSE OF PRESCRIPTION MEDICATIONS Please use one of the following methods to safely dispose of your unused medications. 1.Use a drug disposal kit: the drug disposal pouch allows you to safely discard your old and unused drugs. Ask your nurse to give you one when you are discharged.2.Visit a local take-back location: Many local pharmacies and police departments have programs that collect old and unwanted prescription drugs. Call your local pharmacy or go to http://Moda2Ride.YOOWALK/2Q1Mu8a to find one close to you.3.Make use of household items: Use cat litter or old coffee grounds to dispose medications if other options are not available. Mix your drugs with these household products, seal them in an airtight container and throw it into the garbage. Call [facility]: [phone] to be sure your drugs can be disposed of in this way. Some medicines may require a different approach.4.Never flush your medications down the toilet. IF YOU HAVE BEEN PRESCRIBED AN OPIOIDS FOR PAIN If you have been prescribed an opioid (such as hydrocodone, oxycodone or morphine), it is critical to understand the possible side effects and risks of opioid pain medications. Even when taken as directed, opioids can have several side effects including: Tolerance, meaning you might need to take more of a medication for the same pain relief. Nausea, vomiting and/or constipation. Sleepiness, dizziness, dry mouth, confusion, depression or itching. Physical dependence, meaning you have withdrawal symptoms when a medication is stopped ? this can develop within a few days. KNOW YOUR RESPONSIBILITIES It is important to know exactly how much and how often to take the opioid pain medications you are prescribed. Never take opioids in higher amounts or more often than prescribed. Do not combine opioids with alcohol or other drugs that cause drowsiness, such as benzodiazepines, also known as benzos, including diazepam and alprazolam, muscle relaxants or sleep aids. Never sell or share prescription opioids. This is illegal. Store opioids in a secure place and out of reach of others (including children, family, friends and visitors). The last page(s) of this document has been signed and retained as a CHART COPY Signatures Patient Education Materials Chest Pain, Noncardiac Medication Leaflets My discharge plan and instructions have been reviewed and explained to me and IBRITTNEY ASHLEY N understand my current condition and have read and understand these discharge instructions. I have received a written copy of the plan/instructions. If I have questions, I am aware that I should contact my doctor. Patient/Secret Code Expert Signature: Date/Time: Relationship to Patient: Witness Name/Signature: Date/Time: [facility] 06-15-2023 Hospital Discharge instructions Patient Education 06/15/2023 13:36:33 Chest Pain, Noncardiac Noncardiac Chest Pain Based on your visit today, the healthcare provider doesn t know what is causing your chest pain. In most cases, people who come to the emergency department with chest pain don t have a problem with their heart. Instead, the pain is caused by other conditions. It's important for the healthcare team to be sure you are not having a life threatening cause for chest pain such as a heart attack, blood clot in the lungs, collapsed lung, ruptured esophagus, or tearing of the aorta. Once these major causes have been ruled out, you may have further evaluation for non-heart causes of chest pain. These may be problems with the lungs, muscles, bones, digestive tract, nerves, or mental health. Lung problems Inflammation around the lungs (pleurisy) Collapsed lung (pneumothorax) Fluid around the lungs (pleural effusion) Lung cancer (a rare cause of chest pain) Muscle or bone problems Inflamed cartilage between the ribs (costochondritis) Fibromyalgia Rheumatoid arthritis Chest wall strain Digestive system problems Reflux Stomach ulcer Spasms of the esophagus Gall stones Gallbladder inflammation Mental health conditions Panic or anxiety attacks Emotional distress Your condition doesn t seem serious and your pain doesn t appear to be coming from your heart. But sometimes the signs of a serious problem take more time to appear. Watch for the warning signs listed below. Home care Follow these guidelines when caring for yourself at home: Rest today and avoid strenuous activity. Take any prescribed medicine as directed. Follow-up care Follow up with your healthcare provider, or as advised, if you don t start to feel better within 24 hours. When to seek medical advice Call your healthcare provider right away if any of these occur: A change in the type of pain. Call if it feels different, becomes more serious, lasts longer, or begins to spread into your shoulder, arm, neck, jaw, or back. Shortness of breath You feel more pain when you breathe Cough with dark-colored mucus or blood Weakness, dizziness, or fainting Fever of 100.4 F (38 C) or higher, or as directed by your healthcare provider Swelling, pain, or redness in one leg [id number] [employer]. [address] [place] [address]. All rights reserved. This information is not intended as a substitute for professional medical care. Always follow your healthcare professional's instructions. Follow Up Care 06/15/2023 12:54:40 With:Call Physician Referral Address:Unknown When:2-4 days With:Go to emergency room if symptoms worsen Address:Unknown When:2-4 days With:WALDEMAR SEARS MD Address: [address] [place] [address]- When:2-4 days [facility] 06-15-2023 Note ORIGINAL EXAMINATION: ONE XRAY VIEW OF THE CHEST 06/15/2023 1:47 pm COMPARISON: Chest x-ray on 05/19/2020 HISTORY: ORDERING SYSTEM PROVIDED HISTORY: Reason for Exam: pain FINDINGS: The heart size and mediastinal contours are normal. There is no lung infiltrate or edema. No pneumothorax or pleural fluid is present. The skeletal structures are unremarkable. IMPRESSION: No radiographic abnormality of the chest. Interpreted by: Kevon Portillo MD Preliminary Report By: Kevon Portillo MD Electronically signed By Kevon Portillo MD Dictated Date: 06/15/2023 3:45:08 PM Prelim Date: 06/15/2023 3:45:58 PM Sign Date: 06/15/2023 3:45:58 PM Ordering Provider: SEUN AZUL [facility] 06-15-2023 Note Sinus rhythm Electronic Signature: SEUN AZUL MD 06/15/2023 13:02:32 [facility] 11-11-2022 Note HNO ID: [id number] Author: Britney Hook APRN.CLINICAL DOCUMENTATION SPECIALIST Service: ? Author Type: Nurse Practitioner Type: Progress Notes Filed: 11/11/2022 11:08 AM Note Text: Subjective Cough Associated symptoms include chills, headaches, sore throat and myalgias. Pertinent negatives include no chest pain, no ear pain and no shortness of breath. Bettina Lugo is a 22 year old female who presents with 10 days of cough, nasal congestion, sore throat, ear congestion and headache. Has has a low grade fever the past few days. She has taken Dayquil and Tylenol and Mucinex at home. Review of Systems Constitutional: Positive for chills and fever. HENT: Positive for congestion and sore throat. Negative for ear pain. Respiratory: Positive for cough. Negative for shortness of breath. Cardiovascular: Negative for chest pain. Gastrointestinal: Negative for diarrhea, nausea and vomiting. Musculoskeletal: Positive for myalgias. Neurological: Positive for headaches. BP 118/78 Pulse 90 Temp 36.4 ?C (97.5 ?F) (Tympanic) Resp 18 Wt 68.9 kg (151 lb 12.8 oz) LMP 03/28/2022 SpO2 99% BMI 25.26 kg/m? No past medical history on file. No past surgical history on file. ALLERGIES Adhesive Tape-Silicones and Latex MEDICATIONS vit no.124/iron/folic ( VITAMIN ORAL) Take by mouth. amoxicillin-clavulanic acid (AUGMENTIN) 875-125 mg per tablet Take 1 tablet by mouth twice daily for 7 days. fluticasone (FLONASE) 50 mcg/actuation nasal spray Use 2 Sprays in each nostril once daily. Rinse mouth after use. estradiol (ESTRACE) 1 mg tablet Take 1 mg by mouth once daily. (Patient not taking: Reported on 07/22/2022) medroxyPROGESTERone (DEPO-PROVERA) 150 mg/mL injection Inject 150 mg intramuscularly. (Patient not taking: Reported on 07/22/2022) No family history on file. Social History Tobacco Use Smoking status: Never Smokeless tobacco: Never Objective Physical Exam Vitals and nursing note reviewed. Constitutional: General: She is not in acute distress. Appearance: Normal appearance. She is not toxic-appearing. HENT: Right Ear: Tympanic membrane, ear canal and external ear normal. Left Ear: Tympanic membrane, ear canal and external ear normal. Nose: Nasal tenderness, mucosal edema, congestion and rhinorrhea present. Mouth/Throat: Mouth: Mucous membranes are moist. Pharynx: Oropharynx is clear. Uvula midline. No oropharyngeal exudate or posterior oropharyngeal erythema. Cardiovascular: Rate and Rhythm: Normal rate and regular rhythm. Heart sounds: Normal heart sounds. Pulmonary: Effort: Pulmonary effort is normal. No respiratory distress. Breath sounds: Normal breath sounds. No wheezing or rales. Musculoskeletal: Cervical back: Neck supple. Lymphadenopathy: Cervical: No cervical adenopathy. Skin: General: Skin is warm and dry. Findings: No erythema or rash. Neurological: Mental Status: She is alert. ASSESSMENT/PLAN: 1. Acute sinusitis, recurrence not specified, unspecified location - ICD9: 461.9, ICD10: J01.90 - Will begin treatment with as per antibiotic as written, see orders - Supportive care with plenty of fluids, rest, and analgesia prn. - AMOXICILLIN 875 MG-POTASSIUM CLAVULANATE 125 MG TABLET - FLUTICASONE PROPIONATE 50 MCG/ACTUATION NASAL SPRAY,SUSPENSION - Follow-up with your PCP in 3-5 days if symptoms have not improved or sooner if symptoms worsen - Discussed red flags and need for immediate medical evaluation if any occur. - Discussed supportive care treatment with fluids, rest and analgesia. - Discussed expected course of illness Britney Hook APRN.[facility] 08-20-2022 History of Present illness Narrative Episode Visit Count: 4 Therapist That Will Accept/Oversee The Plan Of Care: Keli Peterson PT Start of Care Date: 08/06/22 Onset Date: 07/21/22 Plan of Care Certification Date: 08/06/22 Next Certification Due Date: 10/01/22 Patient Identified by Name and Date of : Yes REHABILITATION AND SPORTS THERAPY PHYSICAL THERAPY DISCONTINUANCE OF CARE PLAN OF CARE UPDATE: Assessment: Bettina Lugo is discontinued from Physical Therapy services due to goal achievement. and Patient/Clinician mutual decision to discontinue current plan of care.. Patient was seen for 4 visits from Start of Care Date: 08/06/22 to 08/20/2022 and treatment included: Therapeutic exercise and Patient/Family/Caregiver Education. Goals for Episode of Care: created on 08/06/22 through 10/01/22 updated 08/20/22 [place] in home exercise program./ achieved Patient will decrease pain to 3/10 with functional activities to allow patient to improve ambulation and standing tolerance for ADLs/ achieved . Patient will increase active ROM of right knee to equal left to allow pt to to improve performance of ADLs./ partially achieved Patient will demonstrate increase in right LE strength to 4+/5 during manual muscle testing in order to improve function for prior functional tasks./ achieved Patient will increase flexibility of hamstrings to 60 degrees to improve mechanics and decrease pain./ achieved Normal gait./ achieved Reciprocal stair negotiation./ achieved Patient Goals: return to prior funcitonal status/ achieved SUBJECTIVE: Patient Reason for Visit: pt notes no pain this morning. Reports that she is doing all of her normal functional activities and is confident with exs to proceed on her own. Pain: Pain Pain Level: 0 Pain Location: Knee - Right Post Treatment Pain Post Treatment Pain Level: No Change Post Treatment Pain Location: Knee - Right PROMIS Scales Higher is Better 08/06/2022 Phys Func - Score 42 (mild dysfunction) Phys Func - Percentile 21 % GH Physical - Score 44.9 (Good) GH Physical - Percentile 31 % GH Mental - Score 45.8 (Good) GH Mental - Percentile 34 % Self-Eff Symptom - Score 48 (Average) Self-Eff Symptom - Percentile 42 % T-scores: mean of general population = 50. 5 points is clinically meaningfully difference Percentiles provide an indication of how the patient's score ranks in relation to the general population. Higher percentile rankings indicate better function/quality of life. 50th percentile is the average of the general population and indicates half of respondents had a worse score. T-scores: mean of general population = 50. 5 points is clinically meaningfully difference Percentiles provide an indication of how the patient's score ranks in relation to the general population. Higher percentile rankings indicate better function/quality of life. 50th percentile is the average of the general population and indicates half of respondents had a worse score. OBJECTIVE MEASURES WITH LEVEL OF FUNCTION: Knee Observations R Knee Palpation Tenderness: No tenderness noted LE AROM R Knee Extension: 0 Degrees R Knee Flexion: 135 Degrees LE Flexibility R Hamstring Flexibility: 70 LE Strength R Hip Flexion (L2): 5/5 R Hip ABduction: 5/5 R Knee Extension (L3): 5/5 R Knee Flexion: 5/5 Functional Strength Functional Strength: normal stairs, gait, ADL's Gait Gait Observation: no deviations TREATMENT: Therapeutic Exercise: 1: Seated stepper x 5 minutes without UE use, seat #12, discussed symptoms and current status 2: Heel slides for ROM 3: Quad sets x 10 4: SLR 1x10 5: SAQ 2x10 6: Sidelying hip abduction 1x10 full range, 1x10 0-50% Skilled Intervention: Skilled judgment was provided in selection of appropriate interventions. Correct performance of therapeutic exercises was facilitated with verbal and visual cuing. Patient education as noted. Billing Therapeutic Exercise Treatment Minutes: 25 Total Treatment Time Minutes (timed/untimed): 25 Keli Peterson PT documented in this encounter [facility] 08-14-2022 History of Present illness Narrative Episode Visit Count: 2 Therapist That Will Accept/Oversee The Plan Of Care: Keli Peterson PT Start of Care Date: 08/06/22 Onset Date: 07/21/22 Plan of Care Certification Date: 08/06/22 Next Certification Due Date: 10/01/22 Patient Identified by Name and Date of : Yes REHABILITATION AND SPORTS THERAPY PHYSICAL THERAPY TREATMENT NOTE ASSESSMENT: Bettina Lugo tolerated the session with increased symptoms. She demonstrated difficulty with knee extension ROM. The patient will continue to benefit from ongoing skilled physical therapy to progress toward set goals. PLAN FOR NEXT VISIT: Continue progressing pt as tolerated SUBJECTIVE: Patient Reason for Visit: Pt reports that she fell last night, tripping over a cat. Pt states falling directly on her knee. Pt reports taking Tylenol this moring, prior to taking it pain was 8/10. Pt states completing HEP 1x/day and they seem to be helping. Pain: Pain Pain Level: 5 Pain Location: Knee - Right Description: Sharp;Shooting;Tingling Frequency: Intermittent;Continuous OBJECTIVE MEASURES WITH LEVEL OF FUNCTION: LE AROM R Knee Flexion: 90 Degrees (AAROM with strap) TREATMENT: Therapeutic Exercise: 1: Seated stepper x 5 minutes, seat #12 (subjective collected, discussed HEP.) 2: Heel slides with strap 1x10 3: SLR with strap 1x10 4: Quad sets 2x5 5: SAQ 2x5 6: Sidelying hip abduction x5 (therapist blocking at posterior hip to decrease compensation, painful and pulling in hamstrings) 7: *Seated on edge of table hamstring stretch 3x30 seconds R Skilled Intervention: Patient was educated in proper exercise technique and purpose for exercises. Reviewed and educated patient on additions/changes for home exercise program as above (*). Skilled judgment was provided in selection of appropriate interventions. Correct performance of therapeutic exercises was facilitated with verbal and visual cuing. Billing Therapeutic Exercise Treatment Minutes: 39 Total Treatment Time Minutes (timed/untimed): 39 Theresa Leong PTA/Keli Peterson PT documented in this encounter [facility] 08-06-2022 History of Present illness Narrative Episode Visit Count: 1 Therapist That Will Accept/Oversee The Plan Of Care: Keli Peterson PT Start of Care Date: 08/06/22 Onset Date: 07/21/22 Plan of Care Certification Date: 08/06/22 Next Certification Due Date: 10/01/22 REHABILITATION AND SPORTS THERAPY PHYSICAL THERAPY EVALUATION PLAN OF CARE: Assessment: Bettina Lugo presents with chief complaint of right knee pain / patellar pain that interferes with physical activities;stair negotiation;running;squatting;wa lking;lifting . She presents with impairments in ADL's, flexibility, gait, independence in exercise, overall function, range of motion, strength , symptom management, and tissue tenderness. PROMIS (Patient-Reported Outcomes Measurement Information System) scores were reviewed and physical function domain identified as a rehabilitation concern. Prognosis for therapy is Fair due to: limited tolerance to activity . She will benefit from skilled therapy services to meet the goals established for this plan of care as noted below. Goals for Episode of Care: created on 08/06/22 through 10/01/22 [place] in home exercise program. Patient will decrease pain to 3/10 with functional activities to allow patient to improve ambulation and standing tolerance for ADLs. Patient will increase active ROM of right knee to equal left to allow pt to to improve performance of ADLs. Patient will demonstrate increase in right LE strength to 4+/5 during manual muscle testing in order to improve function for prior functional tasks. Patient will increase flexibility of hamstrings to 60 degrees to improve mechanics and decrease pain. Normal gait. Reciprocal stair negotiation. Patient Goals: return to prior funcitonal status Planned Interventions, Frequency, and Duration: Current Frequency: 2x/week Duration: 6 weeks Total Number of Visits Planned: 12 Planned Treatment Interventions: Therapeutic exercise (43446);Neuromuscular re-education (31083);Manual therapy (58249);Self-mcc management (49158);Gait Training (30756);Patient/Family/Caregiver Education PLAN FOR NEXT VISIT: Will add hip abduction standing or sidelying or seated as tolerated Patient demonstrates good understanding of plan of care and treatment. The above goals and plan of care were discussed and agreed upon by patient/family. SUBJECTIVE: Bettina Lugo is a 22 year old female seen today for Pt with injury to knee from fall. Has used crutches 1 1/2 weeks but states using them was too painful on arms and sides. Pt reports that right knee is painful is in quad tendon and patellar area. 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 [employer] Environment Patient Lives With: Significant Other Intake Information: Prescription present Previous Treatment: Ice ;Self prescribed exercises;NSAIDs ;Immobilizer/brace Pain: Pain Pain Level: 6 Pain Location: Knee - Right Description: Tingling (jabbing pain) Frequency: Intermittent;Continuous Post Treatment Pain Post Treatment Pain Level: 9 Post Treatment Pain Location: Knee - Right Post Treatment Pain Description: Aching Post Treatment Symptoms: pt offered ice at end of visit/ declined PROMIS Scales Higher is Better 08/06/2022 Phys Func - Score 42 (mild dysfunction) Phys Func - Percentile 21 % GH Physical - Score 44.9 (Good) GH Physical - Percentile 31 % GH Mental - Score 45.8 (Good) GH Mental - Percentile 34 % Self-Eff Symptom - Score 48 (Average) Self-Eff Symptom - Percentile 42 % T-scores: mean of general population = 50. 5 points is clinically meaningfully difference Percentiles provide an indication of how the patient's score ranks in relation to the general population. Higher percentile rankings indicate better function/quality of life. 50th percentile is the average of the general population and indicates half of respondents had a worse score. T-scores: mean of general population = 50. 5 points is clinically meaningfully difference Percentiles provide an indication of how the patient's score ranks in relation to the general population. Higher percentile rankings indicate better function/quality of life. 50th percentile is the average of the general population and indicates half of respondents had a worse score. OBJECTIVE MEASURES WITH LEVEL OF FUNCTION: Knee Observations R Knee Presents with: (decreased extension and no weight on heel with standing, no swelling noted) R Knee Palpation Tenderness: Quadriceps (patella) Knee Brace: Patellar sleeve LE AROM R Knee Extension: -4 Degrees R Knee Flexion: 84 Degrees L Knee Extension: -4 Degrees L Knee Flexion: 145 Degrees LE PROM R Knee Flexion: 115 Degrees LE Flexibility Flexibility: Hamstring Flexibility R Hamstring Flexibility: 45 L Hamstring Flexibility: 70 LE Joint Mobility R Patellar Mobility: (deferred d/t pain) LE Strength R Hip Flexion (L2): 4+/5 R Knee Extension (L3): 3/5 (pain reported to increase with active extension) Functional Strength Functional Strength: difficulty with squatting, stairs, walking Special Tests - Knee Knee Special Tests: (deferred) Gait Weight Bearing Status: FWB Gait: Independent Gait Device: None Gait Deviations: Right Lower Extremity Gait Deviations Right Lower Extremity: Heel strike during initial stance decreased;Lacks full knee extension during terminal swing;Stance time decreased;Step length decreased Education: Education Learning Preferences: Demonstration;Explanation;Perfor toby;Printed Materials Barriers: None Learning/educational needs: Home exercise program;Plan of Care Education Provided: Yes, see treatment interventions for education provided Education Provided To: Patient Education Mode/Type: Demonstration;Explanation/Discus chante;Literature/Printed Materials;Performance Response to Education/Teach Back: States/Identifies;Return Demonstration TREATMENT: PT Treatment Interventions: Therapeutic Exercise Evaluation Therapeutic Exercise: 1: quad sets 1x5 2: SAQ 1x5 3: heel slides 1x8 Skilled Intervention: Patient was educated in proper exercise technique and purpose for exercises. Skilled judgment was provided in selection of appropriate interventions. Provided written instruction for home exercise program to facilitate proper performance and compliance. Correct performance of therapeutic exercises was facilitated with verbal and visual cuing. Educated patient on rationale for performing exercises in regards to ROM and function . Patient education as noted. Home Exercise Program Assigned: 1: as outlined above 5-10 reps twice daily Billing * Evaluation Low Complexity: 1 Unit Therapeutic Exercise Treatment Minutes: 25 Total Treatment Time Minutes (timed/untimed): 40 Keli Peterson PT documented in this encounter [facility] documented as of this encounter (statuses as of 08/20/2022) [facility]11-22-2022 History of Present illness Narrative* Ernie Lucas APRN.CLINICAL DOCUMENTATION SPECIALIST - 07/22/2022 3:59 PM EST Subjective HPI HPI Bettina Lugo is a 22 year old female who presents today for CC of right knee after fall. This started 1 day ago. Has tried brace and otc meds for relief. Symptoms are worsened by rom/walking.Risk factors hx of injury to right knee in past. Denies possibility of being . Denies numbness/tingling of right lower extremity. [place] a tear and now is unable to bear weight. .Patient presents with: Knee Pain: right x fell x 1 day No past medical history on file. No past surgical history on file. ALLERGIES Adhesive Tape-Silicones and Latex MEDICATIONS estradiol (ESTRACE) 1 mg tablet Take 1 mg by mouth once daily. (Patient not taking: Reported on 07/22/2022) ferrous sulfate (IRON ORAL) Take by mouth. (Patient not taking: Reported on 04/27/2022) medroxyPROGESTERone (DEPO-PROVERA) 150 mg/mL injection Inject 150 mg intramuscularly. (Patient not taking: Reported on 07/22/2022) azithromycin (ZITHROMAX Z-EAN) 250 mg tablet Take two tablets by mouth the first day and then one tablet daily for 4 days. (Patient not taking: Reported on 04/25/2020 ) Euwipesogssivfa-Pszfpvpyx-GV (BROMFED DM) 2-30-10 mg/5 mL syrup Take 5 mL by mouth four times dailyas needed. (Patient not taking: Reported on 12/06/2018 ) No family history on file. Social History Tobacco Use Smoking status: Never Smokeless tobacco: Never ROS Objective Blood pressure 106/66, pulse 70, temperature 36.8 C (98.2 F), resp. rate 16, weight 64.4 kg (142 lb), last menstrual period 03/28/2022, SpO2 99 %. Physical Exam Constitutional: General: She is not in acute distress. Appearance: She is not toxic-appearing or diaphoretic. HENT: Head: Normocephalic and atraumatic. Pulmonary: Effort: Pulmonary effort is normal. No accessory muscle usage or respiratory distress. Musculoskeletal: Right knee: Bony tenderness present. No swelling, deformity, effusion, erythema, ecchymosis, lacerations or crepitus. Decreased range of motion. Tenderness present over the medial joint line and lateral joint line. Normal alignment. Comments: Unable to perform functional testing d/t pain response Neurological: Mental Status: She is alert and oriented to person, place, and time. ASSESSMENT/PLAN: 1. Acute pain of right knee - ICD9: 719.46, ICD10: M25.561 -no bony abnormality noted on xray -given stretches/exercises -Rest, Ice, Compression, Elevation discussed -discussed use of ibuprofen -follow up with primary care if symptoms persist/worsen in 10-14 days Crutches provided. - XR KNEE GENERAL 4V AP BOTH/PA BOTH/LAT/MERC RIGHT IMPRESSION: No radiographic evidence of acute osseous injury. Dictated by : MD Ernie RAYMUNDO APRN.CLINICAL DOCUMENTATION SPECIALIST [facility] Dis[facility] instructions Patient Education 02/01/2022 18:10:48 Syncope, Unk Cause Fainting: Uncertain Cause Fainting (syncope) is a temporary loss of consciousness, which is often associated with a loss of postural tone. There are other causes of fainting, too. It s also called passing out. It occurs when blood flow to the brain is less than normal. Near-fainting (near-syncope) is very similar to fainting, but you don t fully pass out. Common minor causes of fainting include: Sudden fear Pain Nausea Emotional stress Overexertion Suddenly standing up after sitting or lying for a long time can also cause fainting. More serious causes of fainting include: Very slow or very fast heartbeat (arrhythmia) Other types of heart disease, such as heart valve disease or coronary artery disease Dehydration Loss of blood Seizure Stroke Ruptured blood vessel in the brain Taking too much high blood pressure medicine can also cause low blood pressure and fainting. Your healthcare provider does not know the exact cause of your fainting. But the tests today did not show any of the serious causes of fainting. Sometimes you may need more tests to find out if you have a serious problem. That s why it s important to follow up with your provider as advised. Home care Follow these guidelines when caring for yourself at home: Rest today. You may go back to your normal activities when you are feeling back to normal. It is best to stay with someone who can check on you for the next 24 hours to watch for another episode of fainting. If you become lightheaded or dizzy, lie down right away and try to prop your feet above the level of your head. Or sit with your head between your knees. Because the provider doesn t know the exact cause of your fainting or near- fainting spell, it s possible for you to have another spell without warning. Because of this, don t drive a car or operate dangerous equipment. Don t take a bath alone. Use a shower instead. Don t swim alone until your healthcare provider says that you are no longer in danger of having another fainting spell. Follow-up care Follow up with your healthcare provider, or as advised. Call 911 Call 911 if any of these occur: Another fainting spell that s not explained by the common causes listed above Pain in your chest, arm, neck, jaw, back, or abdomen Shortness of breath Severe headache or seizure Blood in vomit or stools (black or red color) Unexpected vaginal bleeding Your heart beats very rapidly, very slowly, or irregularly (palpitations) Weakness in an arm or leg or on one side of the face Difficulty speaking or seeing Extreme drowsiness, confusion, dizziness, or fainting 6590-2433 [employer]. [address] [place] [address]. All rights reserved. This information is not intended as a substitute for professional medical care. Always follow yourhealthcare professional's instructions. 02/01/2022 17:58:41 Vomiting (Adult) Vomiting (Adult) Vomiting is a common symptom that may be due to different causes. These include gastroenteritis ( stomach flu ), food poisoning and gastritis. There are other more serious causes of vomiting which may be hard to diagnose early in the illness. Therefore, it is important to watch for the warning signs listed below. The main danger from repeated vomiting is dehydration. This is due to excess loss of water and minerals from the body. When this occurs, your body fluids must be replaced. Home care If symptoms are severe, rest at home for the next 24 hours. Because your symptoms may be from an infection, wash your hands often and well. If soap and water are not available, use alcohol-based engineering aid to keep from spreading the infection to others. Wash your hands for at least 20 seconds. Humming the happy birthday song twice while you wash is aneasy way to make sure you've washed for 20 seconds. Wash your hands after using the toilet, before and after preparing food, before eating food, after changing a diaper, cleaning a wound, caring for a sick person, and blowing your nose, coughing, or sneezing. You should also wash your hands after caring for someone who is sick, touching pet food, ortreats, and touching an animal, or animal waste. You may use acetaminophen or NSAID medicines like ibuprofen or naproxen to control fever, unless another medicine was prescribed. If you have chronic liver or kidney disease or ever had a stomach ulcer or gastrointestinal bleeding, talk with your doctor before using these medicines. Aspirin should never be used in anyone under 18 years of age who is ill with a fever. It may cause severe liver damage. Don't use NSAID medicines if you are already taking one for another condition (like arthritis) or are on aspirin (such as for heart disease, or after a stroke) Don't use tobacco and or drink alcohol, which may worsen your symptoms. If medicines for vomiting were prescribed, take as directed. Once vomiting stops, then follow these guidelines: During the first 12 to 24 hours follow the diet below: Fruit juices. Apple, grape juice, clear fruit drinks, and electrolyte replacement drinks. Beverages. Soft drinks without caffeine; mineral water (plain or flavored), decaffeinated tea and coffee. Soups. Clear broth and bouillon Desserts. Plain gelatin, ice pops, and fruit juice bars. As you feel better, you may add 6 to 8 ounces of yogurt per day. During the next 24 hours you may add the following to the above: Hot cereal, plain toast, bread, rolls, crackers Plain noodles, rice, mashed potatoes, chicken noodle or rice soup Unsweetened canned fruit such as applesauce, bananas (avoid pineapple and citrus) Limit caffeine and chocolate. No spices or seasonings except salt. During the next 24 hours: Gradually resume a normal diet, as you feel better and your symptoms lessen. Follow-up care Follow up with your healthcare provider, or as advised. When to seek medical advice Call your healthcare provider right away if any of these occur: Constant right-sided lower belly pain or increasing general belly pain Continued vomiting (unable to keep liquids down) for 24 hours Vomiting blood or coffee grounds Swollen belly Frequent diarrhea (more than 5 times a day); blood (red or black color) or mucus in diarrhea Reduced urine output or extreme thirst Weakness, dizziness or fainting Unusually drowsy or confused Fever of 100.4 F (38 C) oral or higher, or as directed Yellow color of the eyes or skin 8436-3914 [employer] [address] [place] [address], [place] [address]. All rights reserved. This information is not intended as a substitute for professional medical care. Always follow yourhealthcare professional's instructions. Follow Up Care 02/01/2022 17:51:56 With:WALDEMAR SEARS MD Address: [address] [place] [id number]- When:2-4 days Comments:Schedule appointment for close follow-up.Start with a clear liquid diet then slowly advance as tolerated.Use Compazine as prescribed for nausea and vomiting as needed.Use Tylenol or Advil for fever and discomfort as needed.Return to the ED if symptoms worsen. [facility] 04-27-2022 Hospital Discharge instructions Patient Education 12/25/2021 06:45:32 Viral Syndrome (Adult) Viral Syndrome (Adult) A viral illness may cause a number of symptoms such as fever. Other symptoms depend on the part of the body that the virus affects. If it settles in your nose, throat, and lungs, it may cause cough, sore throat, congestion, runny nose, headache, earache and other ear symptoms, or shortness of breath. If it settles in your stomach and intestinal tract, it may cause nausea, vomiting, cramping, and diarrhea. Sometimes it causes generalized symptoms like aching all over, feeling tired, loss of energy, or loss of appetite. A viral illness usually lasts anywhere from several days to several weeks, but sometimes it lasts longer. In some cases, a more serious infection can look like a viral syndrome in the first few days of the illness. You may need another exam and additional tests to know the difference. Watch for thewarning signs listed below for when to seek medical advice. Home care Follow these guidelines for taking care of yourself at home: If symptoms are severe, rest at home for the first 2 to 3 days. Stay away from cigarette smoke - both your smoke and the smoke from others. You may use nxjv-rdl-bvxowmy acetaminophen or ibuprofen for fever, muscle aching, and headache, unless another medicine was prescribed for this. If you have chronic liver or kidney disease or ever had a stomach ulcer or gastrointestinal bleeding, talk with your healthcare provider before using these medicines. No one who is younger than 18 and ill with a fever should take aspirin. It may cause severe disease or . Your appetite may be poor, so a light diet is fine. Avoid dehydration by drinking 8 to 12, 8-ounce glasses of fluids each day. This may include water; orange juice; lemonade; apple, grape, and cranberry juice; clear fruit drinks; electrolyte replacement and sports drinks; and decaffeinated teas andcoffee. If you have been diagnosed with a kidney disease, ask your healthcare provider how much andwhat types of fluids you should drink to prevent dehydration. If you have kidney disease, drinking too much fluid can cause it build up in the your body and be dangerous to your health. Xlhz-uhz-tluoosw remedies won't shorten the length of the illness but may be helpful for symptoms such as cough, sore throat, nasal and sinus congestion, or diarrhea. Don't use decongestants if you have high blood pressure. Follow-up care Follow up with your healthcare provider if you do not improve over the next week. Call 911 Call 911 if any of the following occur: Convulsion Feeling weak, dizzy, or like you are going to faint Chest pain, or more than mild shortness of breath When to seek medical advice Call your healthcare provider right away if any of these occur: Cough with lots of colored sputum (mucus) or blood in your sputum Chest pain, shortness of breath, wheezing, or trouble breathing Severe headache; face, neck, or ear pain Severe, constant pain in the lower right side of your belly (abdominal) Continued vomiting (can t keep liquids down) Frequent diarrhea (more than 5 times a day); blood (red or black color) or mucus in diarrhea Feeling weak, dizzy, or like you are going to faint Extreme thirst Fever of 100.4 F (38 C) or higher, or as directed by your healthcare provider [id number] [employer] [address] [place] [address], [place] [address]. All rights reserved. This information is not intended as a substitute for professional medical care. Always follow yourhealthcare professional's instructions. Follow Up Care 12/25/2021 06:35:47 With:WALDEMAR SEARS MD Address: [address] [place] [id number]- When:2-4 days [facility] 04-01-2022 Hospital Discharge instructions Patient Education 11/29/2021 01:29:56 Abdominal Pain Abdominal Pain Abdominal pain is pain in the stomach or belly area. Everyone has this pain from time to time. In many cases it goes away on its own. But abdominal pain can sometimes be due to a serious problem, such as appendicitis. So it s important to know when to get help. Causes of abdominal pain There are many possible causes of abdominal pain. Common causes in adults include: Constipation, diarrhea, or gas Stomach acid flowing back up into the esophagus (acid reflux or heartburn) Severe acid reflux, called GERD (gastroesophageal reflux disease) A sore in the lining of the stomach or small intestine (peptic ulcer) Inflammation of the gallbladder, liver, or pancreas Gallstones or kidney stones Appendicitis Intestinal blockage An internal organ pushing through a muscle or other tissue (hernia) Urinary tract infections In women, menstrual cramps, fibroids, ovarian cysts, pelvic inflammatory disease, or endometriosis Inflammation or infection of the intestines, including Crohn's disease and ulcerative colitis Irritable bowel syndrome Diagnosing the cause of abdominal pain Your healthcare provider will give you a physical exam help find the cause of your pain. If needed,you will have tests. Belly pain has many possible causes. So it can be hard to find the reason for your pain. Giving details about your pain can help. Tell your provider where and when you feel the pain, and what makes it better or worse. Also let your provider know if you have other symptoms such as: Fever Tiredness Upset stomach (nausea) Vomiting Changes in bathroom habits Blood in the stool or black, tarry stool Weight loss that you can't explain (involuntary weight loss?) Also report any family history of stomach or intestinal problems, or cancers. Tell your provider about all your alcohol use and drug use. Tell your provider about all medicines you use, including herbs, vitamins, and supplements. Treating abdominal pain Some causes of pain need emergency medical treatment right away. These include appendicitis or a bowel blockage. Other problems can be treated with rest, fluids, or medicines. Your healthcare provider can give you specific instructions for treatment or self-care based on what is causing your pain. If you have vomiting or diarrhea, sip water or other clear fluids. When you are ready to eat solid foods again, start with small amounts of qhfj-wy-ghctxk, low- fat foods. These include apple sauce, toast, or crackers. When to get medical care Call 911 or go to the hospital right away if you: Can t pass stool and are vomiting Are vomiting blood or have bloody diarrhea or black, tarry diarrhea Have chest, neck, or shoulder pain Feel like you might pass out Have pain in your shoulder blades with nausea Have sudden, severe belly pain Have new, severe pain unlike any you have felt before Have a belly that is rigid, hard, and hurts to touch Call your healthcare provider if you have: Pain for more than 5 days Bloating for more than 2 days Diarrhea for more than 5 days A fever of 100.4 F (38 C) or higher, or as directed by your healthcare provider Pain that gets worse Weight loss for no reason Continued lack of appetite Blood in your stool How to prevent abdominal pain Here are some tips to help prevent abdominal pain: Eat smaller amounts of food at each meal. Don't eat greasy, fried, or other high-fat foods. Don't eat foods that give you gas. Exercise regularly. Drink plenty of fluids. To help prevent GERD symptoms: Quit smoking. Reduce alcohol and foods that increase stomach acid. Don't use aspirin or ylgx-ebk-sjeurzk pain and fever medicines, if possible. This includes nonsteroidal anti-inflammatory drugs (NSAIDs). Lose excess weight. Finish eating at least 2 hours before you go to bed or lie down. Raise the head of your bed. [id number] [employer] [place] [address]. All rights reserved. This information is not intended as a substitute for professional medical care. Always follow yourhealthcare professional's instructions. Follow Up Care 11/28/2021 22:43:37 With:WALDEMAR SEARS MD Address: [address] [place] [phone]- When:2-4 days [facility] 03-29-2022 Hospital Discharge instructions Patient Education 11/26/2021 21:28:43 Abdominal Pain Abdominal Pain Abdominal pain is pain in the stomach or belly area. Everyone has this pain from time to time. In many cases it goes away on its own. But abdominal pain can sometimes be due to a serious problem, such as appendicitis. So it s important to know when to get help. Causes of abdominal pain There are many possible causes of abdominal pain. Common causes in adults include: Constipation, diarrhea, or gas Stomach acid flowing back up into the esophagus (acid reflux or heartburn) Severe acid reflux, called GERD (gastroesophageal reflux disease) A sore in the lining of the stomach or small intestine (peptic ulcer) Inflammation of the gallbladder, liver, or pancreas Gallstones or kidney stones Appendicitis Intestinal blockage An internal organ pushing through a muscle or other tissue (hernia) Urinary tract infections In women, menstrual cramps, fibroids, ovarian cysts, pelvic inflammatory disease, or endometriosis Inflammation or infection of the intestines, including Crohn's disease and ulcerative colitis Irritable bowel syndrome Diagnosing the cause of abdominal pain Your healthcare provider will give you a physical exam help find the cause of your pain. If needed,you will have tests. Belly pain has many possible causes. So it can be hard to find the reason for your pain. Giving details about your pain can help. Tell your provider where and when you feel the pain, and what makes it better or worse. Also let your provider know if you have other symptoms such as: Fever Tiredness Upset stomach (nausea) Vomiting Changes in bathroom habits Blood in the stool or black, tarry stool Weight loss that you can't explain (involuntary weight loss?) Also report any family history of stomach or intestinal problems, or cancers. Tell your provider about all your alcohol use and drug use. Tell your provider about all medicines you use, including herbs, vitamins, and supplements. Treating abdominal pain Some causes of pain need emergency medical treatment right away. These include appendicitis or a bowel blockage. Other problems can be treated with rest, fluids, or medicines. Your healthcare provider can give you specific instructions for treatment or self-care based on what is causing your pain. If you have vomiting or diarrhea, sip water or other clear fluids. When you are ready to eat solid foods again, start with small amounts of onfq-gm-quhmjs, low- fat foods. These include apple sauce, toast, or crackers. When to get medical care Call 911 or go to the hospital right away if you: Can t pass stool and are vomiting Are vomiting blood or have bloody diarrhea or black, tarry diarrhea Have chest, neck, or shoulder pain Feel like you might pass out Have pain in your shoulder blades with nausea Have sudden, severe belly pain Have new, severe pain unlike any you have felt before Have a belly that is rigid, hard, and hurts to touch Call your healthcare provider if you have: Pain for more than 5 days Bloating for more than 2 days Diarrhea for more than 5 days A fever of 100.4 F (38 C) or higher, or as directed by your healthcare provider Pain that gets worse Weight loss for no reason Continued lack of appetite Blood in your stool How to prevent abdominal pain Here are some tips to help prevent abdominal pain: Eat smaller amounts of food at each meal. Don't eat greasy, fried, or other high-fat foods. Don't eat foods that give you gas. Exercise regularly. Drink plenty of fluids. To help prevent GERD symptoms: Quit smoking. Reduce alcohol and foods that increase stomach acid. Don't use aspirin or dnls-ocm-lhkrotp pain and fever medicines, if possible. This includes nonsteroidal anti-inflammatory drugs (NSAIDs). Lose excess weight. Finish eating at least 2 hours before you go to bed or lie down. Raise the head of your bed. [id number] [employer]. [address] [place] [address]. All rights reserved. This information is not intended as a substitute for professional medical care. Always follow yourhealthcare professional's instructions. Follow Up Care 11/26/2021 21:02:11 With:Go to emergency room if symptoms worsen Address:Unknown When:2-4 days With:WALDEMAR SEARS MD Address: [address] [place] [id number] When:2-4 days [facility] Evaluation + Plan note No data available for this section [facility] Evaluation note* Diagnosis Acute pain of right knee- Primary [facility] Diagnosis Anterior knee pain, right Contusion of bone Contusion of unspecified site Hamstring tendonitis [facility] Anterior knee pain, right- Primary Contusion of bone Contusion of unspecified site Hamstring tendonitis [facility] No data available for this section [facility] Discharge Instructions * Instructions* Héctor Cordero MD - 10/29/2020 Please follow-up with your primary care provider for your symptoms. 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 Please take ibuprofen as needed, as well as Zofran for your nausea. If your symptoms worsen or persist please return back to the emergency department. * Attachments The following attachments cannot be sent through Care Everywhere. * Abdominal Pain (Persian) * Nausea and Vomiting (Persian) documented in this encounter* Attachments The following attachments cannot be sent through Care Everywhere. * Coronavirus Disease (COVID-19): Isolation (Persian) * Coronavirus Disease (COVID-19): General Info (Persian) documented in this encounter Assessments Diagnosis Lower abdominal pain- Primary Abdominal pain, other specified site Non-intractable vomiting with nausea, unspecified vomiting type Diagnosis Close exposure to COVID-19 virus- Primary Summary Purpose Family History No Family History Records FoundNo Family History Records FoundNo Family History Records FoundNo Family History Records Found No data available for this section No Family History Records FoundNo Family History Records Found Advance Directives No Advanced Directives Records FoundNo Advanced Directives Records FoundNo Advanced Directives Records FoundNo Advanced Directives Records FoundNo Advanced Directives Records FoundNo Advanced Directives Records Found Reason for Referral Specialty Diagnoses / Procedures Referred By Contac t Referred To Contact [facility] Diagnoses Anterior knee pain, right Contusion of bone Hamstring tendonitis Procedures PT REHAB FOLLOW UP ORDER THERAPEUTIC EXERCISES RE, EA 15 MIN. Pt [facility] [address] [place] [address] [facility] [place] [address] [place] [address] Referral ID Status Reason Start Date Expiration Date Visits Requested Visits Authorized [id number] Pending Review PCP Requested Referral Auto-Generate d Referral 08/07/2022 11/05/2022 1 1 Specialty Diagnoses / Procedures Referred By Contac t Referred To Contact Orthopedics Diagnoses Acute pain of right knee Procedures CONSULT TO ORTHOPAEDICS OFFICE/OUTPATIENT [facility] MDM 60-74 MINUTES Ernie Lucas, PHILIP.CLINICAL DOCUMENTATION SPECIALIST [address] [place] [address] Referral ID Status Reason Start Date Expiration Date Visits Requested Visits Authorized [id number] Authorized PCP Requested Referral 2 07/22/2023 1 1 Specialty Diagnoses / Procedures Referred By Contac t Referred To Contact XR IMAGING Diagnoses Acute pain of right knee Procedures XR KNEE GENERAL 4V AP BOTH/PA BOTH/LAT/MERC RIGHT RADIOLOGIC EXAM KNEE COMPLETE 4/MORE VIEWS Ernie Lucas, LEARNING AND DEVELOPMENT COORDINATOR.CLINICAL DOCUMENTATION SPECIALIST [address] [place] [address] Xr Imaging Referral ID Status Reason Start Date Expiration Date V isits Requested Visits Authorized [id number] Closed Auto-Generate d Referral 07/22/2022 08/21/2023 1 1 Additional Source Comments Reason for Visit (unrecogniz ed section and content) Specialty Diagnoses / Procedures Referred By Contact Referred To Contact [facility] Diagnoses Anterior knee pain, right Contusion of bone Hamstring tendonitis Procedures PT REHAB FOLLOW UP ORDER THERAPEUTIC EXERCISES RE, EA 15 MIN. Jim Weathers PA-C [address] [place] [address] [facility] [place] [address] [place] [id number] Referral ID Status Reason Start Date Expiration Date Visits Requested Visits Authorized [id number] Authorized PCP Requested Referral Auto-Generate d Referral 2 08/30/2022 12 12 Reason Comments Abdominal Pain patient complains of having RLQ pain that started this afternoon while she was at work. patient complains of nause and vomiting, patient also had temp while she was at work. patient is actively holding her RLQ. patient voices that she still has her appendix. Reason Comments Concern For COVID-19 Reason Comments Knee Pain right x fell x 1 day Reason Comments PT Eval Specialty Diagnoses / Procedures Referred By Contact Referred To Contact [facility] Diagnoses Anterior knee pain, right Contusion of bone Hamstring tendonitis Procedures CONSULT TO PHYSICAL THERAPY PHYSICAL THERAPY EVALUATION HIGH COMPLEX 45 MINS Jim Weathers PA-C [address] [place] [address] [facility] [place] [address] Referral ID Status Reason Start Date Expiration Date Visits Re quested Visits Authorized [id number] Closed 08/31/2021 08/30/2022 1 1 Reason Comments Physical Therapy Ordered Prescriptions (unrec ognized section and content) INFORMATION SOURCE (unrecogn ized section and content) DATE CREATED AUTHOR AUTHOR'S ORGANIZ ATION 01/22/2022 [facility] DATE CREATED AUTHOR AUTHOR'S ORGANIZ ATION 03/30/2022 [facility] DATE CREATED AUTHOR AUTHOR'S ORGANIZ ATION 04/02/2022 [facility] DATE CREATED AUTHOR AUTHOR'S ORGANIZ ATION 06/28/2023 [facility] ([place]) DATE CREATED AUTHOR AUTHOR'S ORGANIZ ATION 08/20/2023 [facility] Care Team (unrecognized sect ion and content) Databases Software Consultant Relationship Specialty Start Date End Date [place] [address] [place] [address] PCP - General Pediatrics 07/26/17 Source Comments (unrecognize d section and content) In the event this informatio n is protected by the Federal Confidentiality of Alcohol and Drug Abuse Patient Records regulations: The Federal rules restrict any use of the information to criminally investigate or prosecute any alcohol or drug abuse patient.[facility] the event this information is protected by the Federal Confidentiality of Alcohol and Drug Abuse Patient Records regulations: The Federal rules restrict any use of the information to criminally investigate or prosecute any alcohol or drug abuse patient.[facility] the event this information is protected by the Federal Confidentiality of Alcohol and Drug Abuse Patient Records regulations: The Federal rules restrict any use of the information to criminally investigate or prosecute any alcohol or drug abuse patient.[facility] the event this information is protected by the Federal Confidentiality of Alcohol and Drug Abuse Patient Records regulations: The Federal rules restrict any use of the information to criminally investigate or prosecute any alcohol or drug abuse patient.[facility] FOR RECORDS PERTAINING TO PATIENTS WHO ARE OR HAVE BEEN ENROLLED IN A CHEMICAL DEPENDENCY/SUBSTANCEABUSE PROGRAM, SOME INFORMATION MAY BE OMITTED. This clinical summary was aggregated from multiple sources. Caution should be exercised in using it in the provision of clinical care. This summary normalizes information from multiple sources, and as a consequence, information in this document may materially change the coding, format and clinical context of patient data. In addition, data may be omitted in some cases. CLINICAL DECISIONS SHOULD BE BASED ON THE PRIMARY CLINICAL RECORDS. [facility] [employer] [facility]. provides no warranty or guarantee of the accuracy or completeness of information in this document.
[2023-08-28 04:52] VITALS: BP 128/78; PULSE 76; RESP 16; O2SAT 99
== END 2023-08-28 04:52 | disposition home or self-care (01) ==
PROVIDERS: Emergency Provider Student in an Organized Health Care Education/Training Program; Referring Provider Student in an Organized Health Care Education/Training Program; Visit Provider Student in an Organized Health Care Education/Training Program
DX: R10.2 Pelvic and perineal pain (principal); R11.2 Nausea with vomiting, unspecified; F17.210 Nicotine dependence, cigarettes, uncomplicated; F17.290 Nicotine dependence, other tobacco product, uncomplicated
CPT/HCPCS: 80053; 81001; 84703; 85025; 96374; 96375; 99283; J7030; A4216; J2405

== ENCOUNTER 2023-11-05 15:24 | Emergency (ER) | payer MEDICAID, SELFPAY ==
[2023-11-05 15:25] VITALS: BP 120/68; PULSE 120; RESP 18; TEMP 36.6; O2SAT 100; BMI 24.8
[2023-11-05 17:24] VITALS: BP 148/87; PULSE 115; O2SAT 96
--- NOTE | 2023-11-05 17:43 | ED.RN ---
KAYLAN Valenzuela/Ollie BRUNER WHO IS A STAFF MEMBER HERE IS TO NOT BE IN A ROOM.
--- NOTE | 2023-11-05 17:44 | ED.RN ---
PT COMPLAINING BECAUSE SHE HAD TO SIT IN THE WAITING ROOM WITH AN OPEN WOUND AND THE BANDAGE HAD TO BE CHANGED IN THE ROOM. PT STATES THAT THIS RN SAID MAGGIE Haley
--- NOTE | 2023-11-05 17:48 | ED.RN ---
THIS PROGRESS WORKER CALLED INTO ROOM FOR PATIENT WANTING TO PLACE A COMPLAINT. PT IS TEARFUL/ FRUSTRATED AND STATES SHE HAD TO WAIT IN THE WAITING ROOM FOR A ROOM FOR OVER AN HOUR WITH AN OPEN LACERATION. SHE STATES SHE HAD TO GET HER BANDAGE CHANGED OUT THERE (REFERRING TO TRIAGE) AND HAD NOT SEEN ANYONE SINCE SHE WAS PLACED IN A ROOM AN HOUR AGO. SHE STATES SHE CALLED OUT FOR HELP GOING TO THE BATHROOM BUT NO ONE CAME SO SHE WALKED OVER HERSELF. PT ALSO STATES A NURSE SAID MAGGIE SILVER WHEN SHE WALKED BY IN THE HALLWAY. PT IS INFORMED THE WAIT TIME IS DICTATED BASED ON THE ACUITY OF THE PATIENTS I APOLOGIZED FOR THE LACK OF HELP GETTING TO THE BATHROOM AND GAVE HER THE PATIENT ADVOCATE CARD. HER PRIMARY NURSE WAS AT BEDSIDE DURING THIS CONVERSATION PROVIDING CARE, CLEANING HER WOUND AND APPLYING LET TO NUMB IT.
[2023-11-05] MEDS: Lidocaine 1% (20 ml mdv) 20 ML Vial INFILT (17:51)
[2023-11-05] MEDS: Lidocaine/Epi/Tetracaine 50 ML 1 APPLIC TOPICAL (17:52)
--- NOTE | 2023-11-05 18:24 | EDS_ITS ---
HPI History of Present Illness HPI Narrative: Patient presents with a laceration to her left posterior thigh that occurred 1 hour prior to arrival. Patient states she was sitting on a chair when it broke and a piece of the chair went into her thigh. Patient states her pain is worse with any pressure or palpation to the area. Patient denies any paresthesias or weakness. Patient denies any head injury or loss of consciousness. Patient is unsure of her last tetanus but states she does not want a tetanus shot. Chief Complaint: Wound Informant: patient Occured/Mechanism Mechanism/Context: Yes puncture wound Onset/Context/Timing Onset: Today Context: Sudden Onset Timing: Continuous Quality of Pain: Sharp, Dull, Aching, Burning, Stabbing and Throbbing Location: Left posterior thigh Worsened by: Pressure and palpation Relieved by: Rest Associated Symptoms Associated Symptoms: Negative for Parasthesia, Weakness or Loss of Funtion Narrative Tetanus Immunization: Unknown [facility] Medical History Depression Dysmenorrhea Scoliosis Home Medications dicyclomine 10 mg capsule 20 mg (2 x 10 mg) PO TID #30 caps 08/28/23 [Rx Last Taken Unknown] naproxen 500 mg tablet (Naprosyn) 500 mg PO BID PRN pain #20 tabs 08/28/23 [Rx Last Taken Unknown] ondansetron 4 mg disintegrating tablet 4 mg PO Q8H PRN PRN Nausea #14 tabs 08/28/23 [Rx Last Taken Unknown] cephalexin 500 mg capsule 500 mg PO Q6 #28 CAPSULES 11/05/23 [Rx Last Taken Unknown] Allergy/AdvReac Type Severity Reaction Status Date / Time adhesive Allergy Intermediate Swelling Verified 11/05/23 15:25 Latex, Natural Rubber AdvReac Rash Verified 11/05/23 15:25 Family History Unknown Alzheimer's dementia Blindness genetic blindess, 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 Surgical History History of tonsillectomy and adenoidectomy Social History household members: significant other and other number of children: 0 current occupational status: employed current occupation: [employer] history of recent travel: No sexually active: Yes Smoking Status: Current every day smoker tobacco type: cigarettes and e- cigarettes Electronic Cigarette Use: with nicotine alcohol intake: current alcohol intake frequency: holidays/special occasions only substance use type: does not use what type of physical activity do you participate in: running and weight training frequency: 1-2 times per week seatbelt use: always do you feel safe at home: Yes additional social history: ROS ROS ED Constitutional Constitutional ED: Denies chills or fever(s) Eyes Eyes: Denies blurry vision or change in vision ENT ENT ED: Denies rhinorrhea or sore throat Cardiovascular Cardiovascular: Denies chest pain or palpitations Respiratory/Chest Respiratory/Chest: Denies cough or dyspnea Gastrointestinal Gastrointestinal: Reports nausea; Denies vomiting Genitourinary Genitourinary ED: Denies dysuria or hematuria Musculoskeletal Musculoskeletal: Denies back pain or neck pain Integumentary Denies abscess or rash Neurologic Neurologic: Denies headache(s) or weakness Allergic/Immunologic Allergic/Immunologic ED: Denies mouth swelling or urticaria EXAM Physical Exam Const Vital Signs: 11/05/23 15:25 11/05/23 17:24 Temperature 97.8 F Temperature Source Temporal Pulse Rate 120 H 115 H Respiratory Rate 18 Blood Pressure 120/68 148/87 H Blood Pressure Mean 85 107 Pulse Ox 100 96 Oxygen Delivery Method Room Air Positive well nourished and well developed General Appearance ED: well developed and NAD HEENT Reports moist mucous membranes Extremity normal to inspection and full ROM Neuro oriented x3, CN's II-XII intact bilaterally, moves all extremities and no sensory deficits noted Sensorium / Orientation: alert Motor Exam: strength 5/5 throughout Skin Skin Narrative: There is a 3.5 cm V-shaped laceration over the posterior aspect of the left thigh. There is moderate gapping of the wound margins. There is no active bleeding noted. There are no foreign bodies noted. Sensation was intact to light touch bilaterally in lower extremities. Strength is 5/5 bilaterally in the lower extremities. MDM MDM MDM Narrative Medical decision making narrative: LET gel was applied to the wound. The wound was cleaned and irrigated with copious amounts normal saline. The wound was explored. There are no foreign bodies visualized or palpated. The wound was anesthetized with 1% plain lidocaine locally. The wound was closed with 5 simple interrupted #4-0 nylon sutures under sterile technique. Patient tolerated the procedure well. Patient was given a dose of Keflex here. Patient was given a prescription for Keflex. Patient was instructed to follow-up with her primary care physician in 7 days for wound recheck and suture removal. Patient understood and was agreeable with the plan. All questions were answered. Procedures Lacerations Left posterior thigh: Length: 3.5 cm Depth: Sub Q Shape: Stellate (V-shaped) Prep: Sterile Conditions and Chlorhexadine Laceration repair: Irrigated, Lidocaine, Local and Skin sutures Irrigated (ml): 150 Number of Sutures/[place]: 5 Suture Information: Ethilon, Simple and 4-0 Discharge Plan Triage Chief Complaint: Wound ED Provider: Butch Vargas Dx/Rx/DC Orders Clinical Impression: Laceration of left thigh Instructions: ED Laceration Extremity Prescriptions: New cephalexin [cephalexin] 500 mg capsule 500 mg PO Q6 Qty: 28 0RF No Action dicyclomine 10 mg capsule 20 mg PO TID Qty: 30 0RF ondansetron 4 mg tablet,disintegrating 4 mg PO Q8H PRN PRN (Reason: Nausea) Qty: 14 0RF naproxen [Naprosyn] 500 mg tablet 500 mg PO BID PRN (Reason: pain) Qty: 20 0RF Primary Care Provider: Care Physician,No Primary Referrals: Joslyn Salas MD [Med Staff - [facility]ifter] - 7 Days for suture removal Care Physician,No Primary [Primary Care Provider] - Disposition Disposition: Home, Self Care
[2023-11-05] MEDS: Cephalexin 500 MG Capsule PO (18:39)
[2023-11-05 18:42] VITALS: BP 118/72; PULSE 105; RESP 16; TEMP 36.6; O2SAT 99
--- OUTSIDE RECORDS SUMMARY | 2023-11-05 20:43 | XMS RPT_ITS | CCD ---
Author Name Unknown Address [address] [place] [address] Organization [facility] Care Team Providers Care Shaker Plate Operator Name Role Phone Unavailable Primary Care Provider [...] Care Unavailable Waldemar Sears Primary Care Provider [phone] WALDEMAR SEARS Primary Care Unavailable SEUN AZUL MD Attending Unavailable RENU GUZMAN, DR WALDEMAR Syed Primary Care Unavailab le Allergies Allergy Classification Reported Allergen(s) Allergy Type Date of Onset Reaction(s) Facility (3 sources) traMADol; Translations: [tramadol] Drug Allergy [facility] (1 source) HYDROmorphone Drug Allergy [facility] (1 source) traMADol Drug Allergy [facility] (5 sources) Latex; Translations: [LATEX] Drug Intolerance 07-22-20 Rash, Itching [facility] Work Phone: (5 sources) Adhesive Tape-Silicones; Translations: [ADHESIVE TAPE-SILICONES] Drug Intolerance 07-22-20 Rash, Itching [facility] Work Phone: Medications Current Medications Medication Drug [...] Body temperature 98.24 [degF] SEUN AZUL MD [facility] 06-15-2023 13:07-0400 Diastolic Blood Pressure Non-Invasive 78 1 SEUN AZUL MD [facility] 06-15-2023 13:07-0400 Heart rate 103 /min SEUN AZUL MD [facility] 06-15-2023 13:07-0400 Respiratory rate 18 /min SEUN AZUL MD [facility] 06-15-2023 13:07-0400 Systolic Blood Pressure Non-Invasive 115 1 SEUN AZUL MD [facility] 07-22-2022 15:37-0500 Body temperature 98.2 [degF] Ernie Lance MEDICAL DOCTOR MD.BAND EDGER Work Phone: [facility] 07-22-2022 15:37-0500 Body weight 64.41 kg Ernie Lucas MEDICAL DOCTOR MD.BAND EDGER Work Phone: [facility] 07-22-2022 15:37-0500 Diastolic blood pressure 66 mm[Hg] Ernie Lance MEDICAL DOCTOR MD.BAND EDGER Work Phone: [facility] 07-22-2022 15:37-0500 Heart rate 70 /min Ernie Lance MEDICAL DOCTOR MD.BAND EDGER Work Phone: [facility] 07-22-2022 15:37-0500 Respiratory rate 16 /min Ernie Lance MEDICAL DOCTOR MD.BAND EDGER Work Phone: [facility] 07-22-2022 15:37-0500 SaO2% (BldA) [Mass fraction] 99 % Ernie Lucas MEDICAL DOCTOR MD.BAND EDGER Work Phone: [facility] 07-22-2022 15:37-0500 Systolic blood pressure 106 mm[Hg] Ernie Lucas APRN.BAND EDGER Work Phone: [facility] 02-01-2022 17:55-0400 Body temperature 99.32 [degF] SEUN AZUL MD [facility] 02-01-2022 17:55-0400 Diastolic blood pressure 76 mm[Hg] SEUN AZUL MD [facility] 02-01-2022 17:55-0400 Heart rate 101 /min SEUN AZUL MD [facility] 02-01-2022 17:55-0400 Respiratory rate 18 /min SEUN AZUL MD [facility] 02-01-2022 17:55-0400 Systolic blood pressure 115 mm[Hg] SEUN AZUL MD [facility] 12-25-2021 06:39-0400 Body temperature 97.16 [degF] DR SWAPNA SCALES MD [facility] 12-25-2021 06:39-0400 Body weight 65.[address] SWAPNA SCALES MD [facility] 12-25-2021 06:39-0400 diastolic 85 mm[Hg] DR SWAPNA SCALES MD [facility] 12-25-2021 06:39-0400 Heart rate 102 /min DR SWAPNA SCALES MD [facility] 12-25-2021 06:39-0400 Respiratory rate 20 /min DR SWAPNA SCALES MD [facility] 12-25-2021 06:39-0400 systolic 112 mm[Hg] DR SWAPNA SCALES MD [facility] 11-29-2021 01:44-0400 Diastolic blood pressure 70 mm[Hg] ISIDRO MIR MD [facility] 11-29-2021 01:44-0400 Heart rate 82 /min ISIDRO MIR MD [facility] 11-29-2021 01:44-0400 Mean blood pressure 90 mm[Hg] ISIDRO MIR MD [facility] 11-29-2021 01:44-0400 Respiratory rate 18 /min ISIDRO MIR MD [facility] 11-29-2021 01:44-0400 Systolic blood pressure 130 mm[Hg] ISIDRO MIR MD [facility] 11-29-2021 00:21-0400 Body temperature 98.6 [degF] ISIDRO MIR MD [facility] 11-29-2021 00:21-0400 Diastolic blood pressure 78 mm[Hg] ISIDRO MIR MD [facility] 11-29-2021 00:21-0400 Heart rate 90 /min ISIDRO MIR MD [facility] 11-29-2021 00:21-0400 Mean blood pressure 96 mm[Hg] ISIDRO MIR MD [facility] 11-29-2021 00:21-0400 Respiratory rate 18 /min ISIDRO MIR MD [facility] 11-29-2021 00:21-0400 Systolic blood pressure 132 mm[Hg] ISIDRO MIR MD [facility] 11-28-2021 22:47-0400 Body temperature 98.96 [degF] ISIDRO MIR MD [facility] 11-28-2021 22:47-0400 Diastolic blood pressure 92 mm[Hg] ISIDRO MIR MD [facility] 11-28-2021 22:47-0400 Heart rate 95 /min ISIDRO MIR MD [facility] 11-28-2021 22:47-0400 Respiratory rate 18 /min ISIDRO MIR MD [facility] 11-28-2021 22:47-0400 Systolic blood pressure 145 mm[Hg] ISIDRO MIR MD [facility] 11-27-2021 00:40-0400 Diastolic blood pressure 78 mm[Hg] [facility] 11-27-2021 00:40-0400 Heart rate 75 /min [facility] 11-27-2021 00:40-0400 Respiratory rate 16 /min JOLYNN REICHFIELD DO [facility] 11-27-2021 00:40-0400 Systolic blood pressure 114 mm[Hg] JOLYNN REICHFIELD DO [facility] 11-26-2021 21:15-0400 Body height 165.1 cm JOLYNN REICHFIELD DO [facility] 11-26-2021 21:15-0400 Body temperature 98.06 [degF] JOLYNN REICHFIELD DO [facility] 11-26-2021 21:15-0400 Body weight 65.9 kg JOLYNN REICHFIELD DO [facility] 11-26-2021 21:15-0400 Diastolic blood pressure 81 mm[Hg] JOLYNN REICHFIELD DO [facility] 11-26-2021 21:15-0400 Heart rate 100 /min JOLYNN REICHFIELD DO [facility] 11-26-2021 21:15-0400 Respiratory rate 16 /min JOLYNN REICHFIELD DO [facility] 11-26-2021 21:15-0400 Systolic blood pressure 121 mm[Hg] JOLYNN REICHFIELD DO [facility] 12-09-2020 13:33-0400 BMI (Body Mass Index) 20.36 [...] 16:41-0500 BP Diastolic 80 mm[Hg] Isra Woodard [employer] Work Phone: 10-29-2020 16:41-0500 BP Systolic 120 mm[Hg] Isra Woodard [employer] Work Phone: 10-29-2020 16:41-0500 Pulse (Heart Rate) 90 /min Isra Woodard [employer] Work Phone: 10-29-2020 16:41-0500 Pulse Oximetry 100 % Isra Woodrad [facility] Work Phone: 10-29-2020 16:41-0500 Respiratory Rate 16 /min Isra Woodard [employer] Work Phone: 10-29-2020 14:11-0500 BMI (Body Mass Index) 19.58 kg/m2 Isra Woodard [employer] Work Phone: 10-29-2020 14:11-0500 Body Temperature 97.59 [degF] Isra Woodard [employer] Work Phone: 10-29-2020 14:050 Body weight 56.7 kg Isra Woodard [facility] Work Phone: 10-29-2020 14:050 Height 170.2 cm Isra Woodard [facility] Work Phone: Encounters Encounter Date Encounter Type Care Provider Facility Start: 08-19-2023 End: 08-19-2023 ambulatory [facility] Facility:[facility] Start: 06-15-2023 End: 06-15-2023 Emergency department patient visit SEUN AZUL MD Facility: Start: 06-15-2023 End: 06-15-2023 Emergency department patient visit SEUN AZUL MD [facility] Start: 11-11-2022 End: 11-11-2022 ambulatory [facility] Facility:[facility] Start: 08-20-2022 End: 08-20-2022 ambulatory Keli Peterson PT Work Phone: [facility] Procedures Date Procedure Procedure Detail Performing Clinician Start: 07-22-2022 Radiologic exam knee complete 4/more views Ernie Lucas APRN.BAND EDGER Work Phone: Start: 07-14-[address] DENNIS GUAMAN Plan of Treatment Date Care Activity Detail Author Start: 05-01-2022 Influenza vaccination INFLUENZA (#1) [facility] Start: 02-03-2022 COVID-19 VACCINE (4 - Booster for Pfizer series) COVID-19 VACCINE (4 - Booster for Pfizer series) [facility] Start: 08-31-2021 DEPRESSION ASSESSMENT DEPRESSION ASSESSMENT [facility] Start: 2021 Urine microalbumin profile DTAP,TDAP,TD (1 - Tdap) [facility] Start: 05-01-2021 Influenza vaccination Flu vaccine (Season Ended) [facility] Work Phone: Start: 2020 CHLAMYDIA SCREENING (18-24) CHLAMYDIA SCREENING (18-24) [facility] Start: 2020 GC (GONORRHEA) SCREENING (18-24) GC (GONORRHEA) SCREENING (18-24) [facility] Start: 2020 HEPATITIS C SCREENING HEPATITIS C SCREENING [facility] Start: 2020 HIV SCREENING HIV SCREENING [facility] Start: 05-01-2020 Influenza vaccination Flu vaccine (#1) [facility] Work Phone: Start: 2018 COVID-19 Vaccine (1) COVID-19 Vaccine (1) [facility] Work Phone: Start: 2016 PEDS TO ADULT TRANSITION ANNUAL ASSESSMENT PEDS TO ADULT TRANSITION ANNUAL ASSESSMENT [facility] Start: 2014 PEDS TO ADULT TRANSITION INITIAL DISCUSSION PEDS TO ADULT TRANSITION INITIAL DISCUSSION [facility] Start: 2013 HPV VACCINE (1 - 2-dose series) HPV VACCINE (1 - 2-dose series) [facility] Start: 2012 MENINGOCOCCAL B: Consider based on risk (1 of 2 - Risk Bexsero 2-dose series) MENINGOCOCCAL B: Consider based on risk (1 of 2 - Risk Bexsero 2-dose series) [facility] Start: 2002 HEPATITIS B (1 of 3 - 3-dose series) HEPATITIS B (1 of 3 - 3-dose series) [facility] End: 12-09-2020 COVID-19 COVID-19 Lab Routine One Time for 1 Occurrences starting 12/09/2020 until 12/09/2020 [employer] Work Phone: Payers Date Payer Category Payer Medicaid [id number] 2022 Medicaid [id number] 2013 Medicaid [id number] 2002 Unknown [id number] 2002 Unknown [id number] Worker's Compensation [id number] Social History Date Type Detail Facility Start: 10-29-2020 [facility] Work Phone: History of tobacco use [facility] Work Phone: Start: 10-29-2020 Alcohol intake Lifetime non-d yesenia (finding) [facility] Work Phone: Start: 10-29-2020 History SDOH Alcohol Frequency 1 [employer] Work Phone: Start: 2002 Sex Assigned At Not on file [facility] Work Phone: Start: 07-12-2022 End: 07-22-2022 Exposure to SARS-CoV-2 (event) Not sure [facility] Work Phone: Exposure to SARS-CoV -2 (event) [facility]: Tobacco Nicotine Use: Va ping Product in Last 90 Days. [facility] Start: 07-22-2022 Tobacco smoking status Never s moked tobacco (finding) [facility] Sex Assigned At Sex [facility] Start: 07-22-2022 Tobacco use and exposure Smokeless tobacco non-user [facility] Work Phone: Start: 07-22-2022 Alcohol intake Not Asked [facility] Functional Status Date Assessment Result Facility 06-15-2023 Functional Status Resting [facility] 02-01-2022 Functional Status Independent [facility] 02-01-2022 Functional Status Standard Safet y ID band on, Call device within reach, Bed in low position, Wheels locked, Upper/Half-Length side-rails up, Phone within reach, personal items within reach, Assistive devices within reach, Toileting device within reach, Bedside Cart Locked, Visitor at bedside, Safety level maintained [facility] 12-25-2021 Functional Status [facility] 11-29-2021 [facility] 11-26[facility]21 [facility] Mental Status Date Assessment Result Facility 06-15-2023 Mental Status Orientation Oriented x 4 [facility] 02-01-2022 Mental Status Orientation Oriented x 4 [facility] 02-01-2022 [facility]-28-[facility]21 [facility] Clinical Notes 11-26-2021 to 08-19-2023 Keli Peterson, PT - 08/20/2022 8:10 AM Paul Peterson, PT - 08/14/2022 8:01 AM Paul Peterson, PT - 08/06/2022 3:28 PM EST Note Date & Type Note Facility 08-19-2023 Note HNO ID: [id number] Author: Britney Hook APRN.BAND EDGER Service: ? Author Type: Nurse Practitioner Type: [...] Discussed expected course of illness Britney Hook APRN.[facility] 06-15-2023 Note Discharge Instructions Thank you [...] 2-4 days Where: [address] [place] [address] [place] [address]- Allergies TraMADol Hydrochloride ER Medications Please ask [...] Swelling, pain, or redness in one leg [id number] [employer]. [address] [place] [address]. All rights reserved. This information is not intended as a substitute for professional medical care. Always follow your healthcare professional's instructions. Additional Information VACCINATE! IT SAVES LIVES! Members of the community who have not yet received the COVID-19 vaccine and would like to receive it can visit one of [facility] vaccine clinics. There are many vaccine clinic locations within the [facility]. For locations and available times, please visit [email or web address] It is important to note that some COVID mobile vaccine clinics are held outdoors and may be canceled in rainy or stormy conditions. To learn more about pediatric vaccinations (ages 5-11), we invite you to visit the [facility] webpage. [email or web address] To learn more about the COVID-19 vaccine, we invite you to visit the CDC website for a list of frequently asked questions. https://www.cdc.gov/coronavirus/ 2019-ncov/vaccines/faq.html [facility] Patient [facility] Access Instructions: Stay connected with your healthcare team and access your personal medical information anytime with the [facility] Patient Portal. If you would like a full copy of your medical records please contact the [facility] Medical Records Department Thursday through Thursday between 8a.m. and 4:30p.m. Please follow the directions below to access the portal: 1.Access the email account you provided upon registration to the [facility].2.Look for an invitation email from [facility].3.Open the email and access the invitation link: Accept Invitation to [facility]4.Fill in the required ashford to create your account. Sign into [email or web address] with your username and password that you [...] you will allow to register on the [facility] Patient Portal for access to your information. You can also access the [employer] Patient Portal on the [employer]. Simply click on Health Records under Health Data and then click on the [employer] logo. HOW TO SAFELY DISPOSE OF PRESCRIPTION [...] Call your local pharmacy or go to [email or web address] to find one close to you.3.Make use of household items: Use cat litter or old coffee grounds to dispose medications if other options are not available. Mix your drugs with these household products, seal them in an airtight container and throw it into the garbage. Call [facility]: [phone] to be sure your drugs can be [...] aware that I should contact my doctor. Patient/Coding Coordinator Signature: Date/Time: Relationship to Patient: Witness Name/Signature: Date/Time: [facility] 06-15-2023 Hospital Discharge instructions Patient Education 06/15/2023 [...] Swelling, pain, or redness in one leg 4621-7802 [employer]. [address] [place] [address]. All rights reserved. This information is not intended as a substitute for professional medical care. Always follow your healthcare professional's instructions. Follow Up Care 06/15/2023 12:54:40 With:Call Physician Referral Address:Unknown When:2-4 days With:Go to emergency room if symptoms worsen Address:Unknown When:2-4 days With:WALDEMAR SEARS MD Address: [address] [place] [phone]- When:2-4 days [facility] 06-15-2023 Note ORIGINAL EXAMINATION: ONE XRAY VIEW [...] 06/15/2023 3:45:58 PM Ordering Provider: SEUN AZUL [facility] 06-15-2023 Note Sinus rhythm Electronic Signature: SEUN AZUL MD 06/15/2023 13:02:32 [facility] 11-11-2022 Note HNO ID: [id number] Author: Britney Hook APRN.BAND EDGER Service: ? Author Type: Nurse Practitioner Type: [...] Discussed expected course of illness Britney Hook APRN.BAND EDGER [facility] 08-20-2022 History of Present illness Narrative [...] created on 08/06/22 through 10/01/22 updated 08/20/22 [place] in home exercise program./ achieved Patient will [...] Keli Peterson PT documented in this encounter [facility] 08-14-2022 History of Present illness Narrative Episode [...] PTA/Keli Peterson PT documented in this encounter [facility] 08-06-2022 History of Present illness Narrative Episode [...] of Care: created on 08/06/22 through 10/01/22 [place] in home exercise program. 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 Denies numbness/tingling of right lower extremity. [place] a tear and now is unable to [...] (Patient not taking: Reported on 04/25/2020 ) Zmhylpboiuffrhw-Qztvntxpp-OF (BROMFED DM) 2-30-10 mg/5 mL syrup Take [...] injury. Dictated by : MD Ernie RAYMUNDO APRN.BAND EDGER [facility] Hospital Discharge instructions Patient Education 02/01/2022 18:10:48 [...] seeing Extreme drowsiness, confusion, dizziness, or fainting [id number] [employer]. [address] [place] [address]. All rights reserved. This information is not intended as a substitute for professional medical care. Always follow your[place]care professional's instructions. 02/01/2022 17:58:41 Vomiting (Adult) Vomiting [...] and water are not available, use alcohol-based adult ministries director to keep from spreading the infection to [...] Yellow color of the eyes or skin 4338-8002 [employer]. [address] [place] [address], [place] [address]. All rights reserved. This information is not intended as a substitute for professional medical care. Always follow yourhealthcare professional's instructions. Follow Up Care 02/01/2022 17:51:56 With:WALDEMAR SEARS MD Address: [address] [place] [phone]- When:2-4 days Comments:Schedule appointment for close follow-up.Start with a clear liquid diet then slowly advance as tolerated.Use Compazine as prescribed for nausea and vomiting as needed.Use Tylenol or Advil for fever and discomfort as needed.Return to the ED if symptoms worsen. [facility] 04-27-2022 Hospital Discharge instructions Patient Education 12/25/2021 [...] the smoke from others. You may use xmzg-qlp-zgzuvnc acetaminophen or ibuprofen for fever, muscle aching, [...] body and be dangerous to your health. Prpj-ndv-spkltvw remedies won't shorten the length of the [...] or as directed by your healthcare provider 8884-2510 [employer]. [address] [place] [address], [place] [address]. All rights reserved. This information is not intended as a substitute for professional medical care. Always follow yourhealthcare professional's instructions. Follow Up Care 12/25/2021 06:35:47 With:WALDEMAR SEARS MD Address: [address] [place] [phone]- When:2-4 days [facility] 04-01-2022 Hospital Discharge instructions Patient Education 11/29/2021 [...] foods again, start with small amounts of xntl-ei-otpuwj, low- fat foods. These include apple sauce, [...] increase stomach acid. Don't use aspirin or whow-ahe-rhuiywt pain and fever medicines, if possible. This includes nonsteroidal anti-inflammatory drugs (NSAIDs). Lose excess weight. Finish eating at least 2 hours before you go to bed or lie down. Raise the head of your bed. [phone] [employer] [place] [address]. All rights reserved. This information is not intended as a substitute for professional medical care. Always follow yourhealthcare professional's instructions. Follow Up Care 11/28/2021 22:43:37 With:WALDEMAR SEARS MD Address: [address] [place] [phone]- When:2-4 days [facility] 03-29-2022 Hospital Discharge instructions Patient Education 11/26/2021 [...] foods again, start with small amounts of btfv-cw-ohrqqn, low- fat foods. These include apple sauce, [...] increase stomach acid. Don't use aspirin or ewda-gzc-niwyyyc pain and fever medicines, if possible. This includes nonsteroidal anti-inflammatory drugs (NSAIDs). Lose excess weight. Finish eating at least 2 hours before you go to bed or lie down. Raise the head of your bed. 4107-6512 [employer]. [address] [place] [address]. All rights reserved. This information is not intended as a substitute for professional medical care. Always follow yourhealthcare professional's instructions. Follow Up Care 11/26/2021 21:02:11 With:Go to emergency room if symptoms worsen Address:Unknown When:2-4 days With:WALDEMAR SEARS MD Address: [address] [place] [phone]- When:2-4 days [facility] Evaluation + Plan note No data available for this section [facility] Evaluation note* Diagnosis Acute pain of right knee- Primary [facility]* Diagnosis Anterior knee pain, right Contusion of bone Contusion of unspecified site Hamstring tendonitis [facility] Diagnosis Anterior knee pain, right- Primary Contusion of bone Contusion of unspecified site Hamstring tendonitis [facility] No data available for this section [facility] Discharge Instructions * Instructions* Héctor Cordero MD - 10/29/2020 Please follow-up with your primary care provider for your symptoms. A referral has been given for [facility] as well. Please take ibuprofen as needed, as well as Zofran for your nausea. If your symptoms worsen or persist please return back to the emergency department. * Attachments The following attachments cannot be sent through Care Everywhere. * Abdominal Pain (Kuwaiti) * Nausea and Vomiting (Kuwaiti) documented in this encounter* Attachments The following attachments cannot be sent through Care Everywhere. * Coronavirus Disease (COVID-19): Isolation ([place]) * Coronavirus Disease (COVID-19): General Info ([place]) documented in this encounter Assessments Diagnosis Lower [...] THERAPEUTIC EXERCISES RE, EA 15 MIN. Pt [facility] [address] [place] [address] [facility] [address] [place] [address] Referral ID Status Reason Start Date Expiration Date Visits Requested Visits Authorized [id number] Pending Review PCP Requested Referral Auto-Generate d Referral 08/07/2022 11/05/2022 1 1 Specialty Diagnoses / Procedures Referred By Contac t Referred To Contact Orthopedics Diagnoses Acute pain of right knee Procedures CONSULT TO ORTHOPAEDICS OFFICE/OUTPATIENT ON LICENSE OF [facility] MDM 60-74 MINUTES Ernie Lucas, MEDICAL DOCTOR MD.B[facility] EDGER [address] [place] [address] Referral ID Status Reason Start Date Expiration Date Visits Requested Visits Authorized [id number] Authorized PCP Requested Referral 2 07/22/2023 1 1 Specialty Diagnoses / Procedures Referred By Contac t Referred To Contact XR IMAGING Diagnoses Acute pain of right knee Procedures XR KNEE GENERAL 4V AP BOTH/PA BOTH/LAT/MERC RIGHT RADIOLOGIC EXAM KNEE COMPLETE 4/MORE VIEWS Ernie Lucas, MEDICAL DOCTOR MD.BAND EDGER [address] [place] [address] Xr Imaging Referral ID Status Reason Start Date Expiration Date V isits Requested Visits Authorized [id number] Closed Auto-Generate d Referral 07/22/2022 08/21/2023 1 1 Additional Source Comments Reason for Visit (unrecogniz ed section and content) Specialty Diagnoses / Procedures Referred By Contact Referred To Contact [facility] Diagnoses Anterior knee pain, right Contusion of bone Hamstring tendonitis Procedures PT REHAB FOLLOW UP ORDER THERAPEUTIC EXERCISES RE, EA 15 MIN. Jim Weathers PA-C [address] [place] [address] [facility] [address] [place] [id number] Referral ID Status Reason Start Date Expiration Date Visits Requested Visits Authorized [id number] Authorized PCP Requested Referral Auto-Generate d Referral [...] HIGH COMPLEX 45 MINS Jim Weathers PA-C [address] [place] [address] [facility] [place] [address] Referral ID Status Reason Start Date Expiration Date Visits Re quested Visits Authorized [id number] Closed 08/31/2021 08/30/2022 1 1 Reason Comments Physical Therapy Ordered Prescriptions (unrec ognized section and content) INFORMATION SOURCE (unrecogn ized section and content) DATE CREATED AUTHOR AUTHOR'S ORGANIZ ATION 01/22/2022 [facility] DATE CREATED AUTHOR AUTHOR'S ORGANIZ ATION 03/30/2022 [facility] DATE CREATED AUTHOR AUTHOR'S ORGANIZ ATION 04/02/2022 [facility] DATE CREATED AUTHOR AUTHOR'S ORGANIZ ATION 08/20/2023 [facility] DATE CREATED AUTHOR AUTHOR'S ORGANIZ ATION 09/15/2023 [facility] ([place]) Care Team (unrecognized sect ion and content) Shaker Plate Operator Relationship Specialty Start Date End [place] [address] PCP - General Pediatrics 07/26/17 Source Comments (unrecognize d section and content) In the event this informatio n is protected by the Federal Confidentiality of Alcohol and Drug Abuse Patient Records regulations: The Federal rules restrict any use of the information to criminally investigate or prosecute any alcohol or drug abuse patient.[facility] the event this information is protected by the Federal Confidentiality of Alcohol and Drug Abuse Patient Records regulations: The Federal rules restrict any use of the information to criminally investigate or prosecute any alcohol or drug abuse patient.[facility] the event this information is protected by the Federal Confidentiality of Alcohol and Drug Abuse Patient Records regulations: The Federal rules restrict any use of the information to criminally investigate or prosecute any alcohol or drug abuse patient.[facility] the event this information is protected by the Federal Confidentiality of Alcohol and Drug Abuse Patient Records regulations: The Federal rules restrict any use of the information to criminally investigate or prosecute any alcohol or drug abuse patient.[facility] FOR RECORDS PERTAINING TO PATIENTS WHO ARE [...] BE BASED ON THE PRIMARY CLINICAL RECORDS. [facility]. provides no warranty or guarantee of the accuracy or completeness of information in this document.
== END 2023-11-05 18:46 | disposition home or self-care (01) ==
PROVIDERS: Emergency Provider Emergency Medicine; Visit Provider Emergency Medicine
DX: S71.112A Laceration without foreign body, left thigh, initial encounter (principal); F17.210 Nicotine dependence, cigarettes, uncomplicated; F17.290 Nicotine dependence, other tobacco product, uncomplicated; X58.XXXA Exposure to other specified factors, initial encounter
CPT/HCPCS: 12002; 99283; J7030

== ENCOUNTER → 2024-10-18 | Outpatient (CLI) | payer MEDICAID, SELFPAY ==
[2024-10-18 13:12] LABS: hCG Titer Quant., Serum 54395 mIU/mL (1-3)
== END | disposition home or self-care (01) ==
PROVIDERS: Referring Provider Obstetrics & Gynecology; Visit Provider Obstetrics & Gynecology
DX: O20.9 Hemorrhage in early pregnancy, unspecified (principal); Z3A.00 Weeks of gestation of pregnancy not specified; Z87.59 Personal history of other complications of pregnancy, childbirth and the puerperium
CPT/HCPCS: 36415; 84702

== ENCOUNTER → 2024-10-19 | Outpatient (CLI) | payer MEDICAID, SELFPAY ==
--- NOTE | 2024-10-19 11:45 | US_ITS ---
EXAM: TRANSVAGINAL W/PREG US CLINICAL HISTORY: 24 y/o F; dating. LMP 08/12/2024. COMPARISON: None. TECHNIQUE: Multiple sequential longitudinal and transverse real- time images were obtained transvaginally. Doppler images were also performed. FINDINGS: The uterus measures 10.7 cm x 6.7 cm x 5.0 cm. There is a single intrauterine with a sonographic estimated age of 7 weeks 3 days and expected date of delivery 06/04/2025. Mean gestational sac diameter: 2.8 cm [place]-rump length: 0.9 cm cardiac activity is recorded at 118 bpm. No free fluid in the endometrial canal. The right ovary measures 3.8 cm x 3.1 cm x 2.2 cm. The left ovary measures 2.3 cm x 1.8 cm x 1.2 cm. No suspicious ovarian cyst or solid adnexal lesion identified. Blood flow is documented to the ovaries. No significant free fluid in the pelvis. US/Transvaginal w/Preg US IMPRESSION: Single live intrauterine with an estimated gestational age by ultraso und of 7 weeks 3 days and expected date of delivery 06/04/2025. Reading Location: [id number]
== END | disposition home or self-care (01) ==
LOC: US 11:38
PROVIDERS: Referring Provider Nurse Practitioner Women's Health; Visit Provider Nurse Practitioner Women's Health
DX: O20.9 Hemorrhage in early pregnancy, unspecified (principal); Z87.59 Personal history of other complications of pregnancy, childbirth and the puerperium; Z3A.00 Weeks of gestation of pregnancy not specified
CPT/HCPCS: 76817

== ENCOUNTER → 2024-11-03 | Outpatient (CLI) | payer MEDICAID, SELFPAY ==
[2024-11-03 12:19] LABS: Absolute Lymphocyte Count 1.95 X10^3/uL (0.83-4.51); Absolute Neutrophil Count 5.8 X10^3/uL (2.0-7.7); Basophil# 0.02 X10^3/uL; Basophil% 0.2 % (0-1); Eosinophil# 0.12 X10^3/uL; Eosinophils% 1.4 % (0-5); Hematocrit 37.7 % (37-47); Hemoglobin 12.3 g/dL (12.0-15.0); Lymphocyte # 1.95 X10^3/ul (0.83-4.51); Lymphocyte % 22.5 % (19-41); Mean Corp Hgb Conc 32.6 g/dL (32-36); Mean Corpuscular Hgb 28.7 pg (27.0-32.0); Mean Corpuscular Volume 87.9 fL (81-99); Mean Platelet Vol. 10.2 fl (6.2-12.0); Monocyte# 0.77 X10^3/uL; Monocyte% 8.9 % (0-10); NRBC Flagged by Analyzer 0 % (0-5); Neutrophil # 5.79 X10^3/uL (2.7-7.7); Neutrophil % 66.7 % (47-70); Platelet Count 334 K/mm3 (150-450); RBC Distribution Width CV 12.2 % (11.6-14.6); RBC Distribution Width SD 39.4 fl (35.1-43.9); Red Blood Count 4.29 M/mm3 (4.2-5.4); White Blood Count 8.7 K/mm3 (4.4-11.0)
[2024-11-03 13:04] LABS: HIV Nonreactive (Nonreactive); Hepatitis B Surface Antigen Nonreactive (Nonreactive); Hepatitis C Antibody Nonreactive (Nonreactive); Syphilis Antibodies Nonreactive (Nonreactive)
[2024-11-04 14:40] LABS: Rubella IgG REAC (Nonreactive)
[2024-11-07 20:08] LABS: Chlamydia By Nucleic Acid AMP Negative (Negative); Gonococcus By Nucleic Acid AMP Negative (Negative)
== END | disposition home or self-care (01) ==
PROVIDERS: Referring Provider Obstetrics & Gynecology; Visit Provider Obstetrics & Gynecology
DX: O09.90 Supervision of high risk pregnancy, unspecified, unspecified trimester (principal); O99.891 Other specified diseases and conditions complicating pregnancy; N89.8 Other specified noninflammatory disorders of vagina; Z3A.00 Weeks of gestation of pregnancy not specified
CPT/HCPCS: 36415; 85025; 86703; 86762; 86780; 86803; 86850; 86900; 86901; 87070; 87205; 87340; 87491; 87591

== ENCOUNTER → 2024-12-01 | Outpatient (CLI) | payer MEDICAID, SELFPAY | END | disposition home or self-care (01) | PROVIDERS: Referring Provider Advanced Practice Midwife; Visit Provider Advanced Practice Midwife | DX: Z34.81 Encounter for supervision of other normal pregnancy, first trimester (principal) | CPT/HCPCS: 36415; 88175; G0145 ==

== ENCOUNTER 2025-01-21 17:26 | Outpatient (CLI) | payer MEDICAID, SELFPAY ==
[2025-01-21 17:40] VITALS: RESP 16; TEMP 36.6; BMI 25.3
[2025-01-21 17:43] VITALS: BP 108/64; PULSE 90
--- NOTE | 2025-01-21 19:33 | OB.TRI.HP_ITS ---
HPI - General HPI Narrative BETTINA LUGO, is a 24 F who presents at 20.6 with increased mucousy discharge, was at a concert last night and fell onto side, no vaginal bleeding. no additional cramping, although does endorse intermittent cramping over the past week. recently treated for a sinus infection with antibiotics which has resolved. Maternal Data Information SAMREEN Calculator Estimated Delivery Date Method Current WG Current Estimate 06/04/25 Ultrasound #1 20w 6d Other Estimates 05/19/25 LMP (Uncertain) 23w 1d PFSH PFSH Medical History Hirsutism Enlarged heart chamber Pelvic pain History of ovarian cyst Irregular menses Acne Bleeding in early Dysmenorrhea Depression Scoliosis Home Medications ?Medication ?Instructions ?Recorded ?Last Taken ?Type multivitamin no.47-iron fum 27 1 cap PO DAILY 10/21/24 09/30/24 21:00 History mg-folate no.1 1 mg-dha 300 mg 1 cap capsule (PNV-DHA) prochlorperazine maleate 10 mg 10 mg PO Q8H PRN nausea and 10/21/24 01/13/25 07:00 Rx tablet (Compazine) vomiting #90 tabs 10 mg terconazole 0.4 % vaginal cream 5 g vaginal QHS 7 days #45 grams 01/21/25 Unknown Rx Allergy/AdvReac Type Severity Reaction Status Date / Time adhesive Allergy Intermediate Swelling Verified 01/21/25 17:38 Latex, Natural Rubber AdvReac Rash Verified 01/21/25 17:38 Family History Unknown Alzheimer's dementia Blindness genetic blindess, 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 Grandfather Diabetes Grandmother Lung cancer Grandfather Hypertension Surgical History [place] teeth extracted History of tonsillectomy and adenoidectomy Social History adopted: No household members: spouse number of children: 0 current occupational status: unemployed current occupation: [employer] - [employer] current occupational exposures/hazards: No pets and animals: Yes (Not taking care of litterbox ) pets and animals: cat(s) and dog(s) history of recent travel: Yes ([place], [place], [place], [place]) out of state: Yes out of country: No sexually active: Yes Smoking Status: Current every day smoker tobacco type: cigarettes and e- cigarettes Electronic Cigarette Use: with nicotine alcohol intake: current alcohol intake frequency: holidays/special occasions only details: Not after +HPT substance use type: does not use diet: gluten free and other well-balanced diet: about half the time caffeine: No eating out: 4 or more times/week during the past year weight has: increased > 10 lbs what type of physical activity do you participate in: none frequency: does not exercise parveen/yarsani: None seatbelt use: always do you feel safe at home: Yes additional social history: : [employer] and a gym History 2 Elective abortions Hx Para 0 Spontaneous abortions 1 Hx # Term Pregnancies Ectopic pregnancies Hx # Pregnancies Multiple births # of living children 0 Past Pregnancies Del. Date Name GA/Weeks Outcome Route Bth Weight Gen Labor Lgth Anesthesia Del Locatn Provider FOB 11/30/23 7 spontaneous Visit Details Expected Delivery Route/Plan Labor Preferences- CB/BF classes: [] labor support person: [] labor intervention preferences: [] pain management options preferred: [] cut cord/dad catch: [] : [] PP control planned: [] discussed possible routes of delivery and associated risks: [] special requests: [] Plans Covid status: [] Flu vaccine: [] Tdap vaccine: [] Rhogam: [] LARC form signed: [] Problem list reviewed and updated with the most current plan of care details and appropriate orders placed. Relevant counseling for the gestational age provided. Continue routine care and follow up unless otherwise noted in visit notes/problem list details OB Flowsheet Initial Weight: Not Recorded Date -?-?-?-?-?-?-?-?-?-?-?-?- EGA Weight BP Urine Prot -?-?-?-?-?-?-?-?-?-?-?-?- Glucose FHR FuHt Pres Dilation -?-?-?-?-?-?-?-?-?-?-?-?- Effaced St Visit Note 11/03/24 -?-?-?-?-?-?-?-?-?-?-?-?- 9w 4d 149 lb 4 oz 109/74 -?-?-?-?-?-?-?-?-?-?-?--?- 170 -?-?-?-?-?-?-?-?-?-?-?-?- JV- CRL matches 7 week scan. declines nipt declines pap. will likely transfer care. 12/01/24 -?-?-?-?-?-?-?--?-?-?-?-?- 13w 4d 144 lb 109/74 Negative -?-?-?-?-?-?-?-?-?-?-?-?- Negative 144 -?-?-?-?-?-?-?-?-?-?-?-?- KW- no vb/crampi ng. pap and NIPT today. MFM anatomy US ordered. awaiting a call for deployment for her -in . likely will be transferring care. Was in [place] [facility] over the weekend and dx with UTI. 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 12/29/24 -?-?-?-?-?-?-?-?-?-?-?-?- 17w 4d 145 lb 8 oz 102/68 -?-?-?-?-?-?-?-?-?-?-?-?- 150 -?-?-?-?-?-?-?-?-?-?-?-?- SM- occasional s potting SM- occasional spotting no c ramping planning to move to [place] Physical Exam Const alert, oriented x3 and no apparent distress Resp normal respiratory effort, normal air movement, no retractions and no use of accessory muscles Cardio regular rate and regular rhythm GI soft to palpation and non-tender Inspection: Palpation: soft Rectal Exam: deferred no CVA tenderness and external exam normal Narrative: speculum exam demonstrated white curdy discharge, visually long, thick and closed cervix. no mucus coming from os. Bimanual Exam - Vag & Uterus: uterus non-tender and other gravid uterus, normal for gestational age OB / External & Speculum: Negative for herpetic lesions Manual OB Exam: estimated gestational size appropriate and presentation cephalic Amniotic Fluid: no amniotic fluid noted Extremity normal to inspection and full ROM Neuro Motor Exam: strength 5/5 throughout and muscle tone normal throughout Deep Tendon Reflexes: Rt Patellar (L4): 2+ and Lt Patellar (L4): 2+ NST FHR Rate Baby A Baseline: FHR check:155 Uterine Activity:: none Assessment & Plan (1) Yeast infection: COMMENT: terconazole cream ordered. no ctx. safe for d/c home (2) Uterine cramping: COMMENT: no ctx palpated or demonstrated on monitor PLAN: Plan Patient presents for triage evaluation secondary to increased vaginal discharge, speculum exam demonstrated white curdy discharge consistent with yeast infection. FHT:155 [place]: no Contractions Assessment and plan: Reactive NST, reassuring maternal and status patient discharged to home to follow-up in office. See problem list details for additional plan information. Charges/Coding Procedures Urinary/Genital 52xxx-59xxx: [id number] non-stress test Interp Multi Select Codes Visit Charges Office Visit/Consults: 20411 OV L3 Est 20min
== END 2025-01-21 19:40 | disposition home or self-care (01) ==
LOC: WPOUT 17:29 → WP 17:30
PROVIDERS: Referring Provider Registered Nurse; Visit Provider Registered Nurse
DX: O98.812 Other maternal infectious and parasitic diseases complicating pregnancy, second trimester (principal); B37.9 Candidiasis, unspecified; Z3A.20 20 weeks gestation of pregnancy
CPT/HCPCS: 59025; 59050; 99221; G0378

== ENCOUNTER → 2025-02-17 | Outpatient (CLI) | payer MEDICAID, SELFPAY ==
[2025-02-17 12:12] LABS: Absolute Lymphocyte Count 2.03 X10^3/uL (0.83-4.51); Absolute Neutrophil Count 6.5 X10^3/uL (2.0-7.7); Basophil# 0.02 X10^3/uL; Basophil% 0.2 % (0-1); Eosinophil# 0.18 X10^3/uL; Eosinophils% 1.8 % (0-5); Hematocrit 31.9 % (37-47); Hemoglobin 10.6 g/dL (12.0-15.0); Lymphocyte # 2.03 X10^3/ul (0.83-4.51); Lymphocyte % 20.8 % (19-41); Mean Corp Hgb Conc 33.2 g/dL (32-36); Mean Corpuscular Hgb 30.5 pg (27.0-32.0); Mean Corpuscular Volume 91.9 fL (81-99); Mean Platelet Vol. 10.5 fl (6.2-12.0); Monocyte# 0.93 X10^3/uL; Monocyte% 9.5 % (0-10); NRBC Flagged by Analyzer 0 % (0-5); Neutrophil # 6.52 X10^3/uL (2.7-7.7); Platelet Count 317 K/mm3 (150-450); RBC Distribution Width CV 13.2 % (11.6-14.6); RBC Distribution Width SD 43.8 fl (35.1-43.9); Red Blood Count 3.47 M/mm3 (4.2-5.4); White Blood Count 9.8 K/mm3 (4.4-11.0)
[2025-02-17 12:54] LABS: Glucose Challenge Gest 1H 50g 74 mg/dL (70-140); HIV Nonreactive (Nonreactive); Syphilis Antibodies Nonreactive (Nonreactive)
== END | disposition home or self-care (01) ==
PROVIDERS: Obstetrics & Gynecology; Visit Provider Advanced Practice Midwife
DX: Z13.1 Encounter for screening for diabetes mellitus (principal); O09.90 Supervision of high risk pregnancy, unspecified, unspecified trimester; Z3A.00 Weeks of gestation of pregnancy not specified
CPT/HCPCS: 36415; 82950; 85025; 86703; 86780